=== PATIENT | female | born 1935 | race Caucasian/White ===

== ENCOUNTER 2016-09-22 07:09 | Outpatient (CLI) | payer MEDICARE | END 2016-09-22 07:10 | disposition home or self-care (01) | DX: R30.0 Dysuria (principal) ==

== ENCOUNTER 2016-09-22 15:24 | Outpatient (CLI) | payer MEDICARE | END 2016-09-22 15:25 | disposition home or self-care (01) | DX: M50.321 Other cervical disc degeneration at C4-C5 level (principal); R30.0 Dysuria; M47.892 Other spondylosis, cervical region; M51.36 Other intervertebral disc degeneration, lumbar region; M47.896 Other spondylosis, lumbar region; M25.511 Pain in right shoulder; M19.011 Primary osteoarthritis, right shoulder; M51.34 Other intervertebral disc degeneration, thoracic region; M41.34 Thoracogenic scoliosis, thoracic region; S22.059A Unspecified fracture of T5-T6 vertebra, initial encounter for closed fracture; S22.069A Unspecified fracture of T7-T8 vertebra, initial encounter for closed fracture; S22.079A Unspecified fracture of T9-T10 vertebra, initial encounter for closed fracture ==

== ENCOUNTER 2018-05-30 10:57 | Outpatient (CLI) | payer MEDICARE ==
--- NOTE | 2018-05-30 23:09 | XRAY Report ---
Reason: COMPRESSION FRACTURE, SPINE, DISORDERS OF BLADDER Procedure Date: 05/30/2018 Accession Number: [id number] / [id number] Procedure: XR - Abdomen 3 View X-Ray CPT Code: 43329 FULL RESULT: EXAM: ABDOMINAL SERIES AND PA CHEST. EXAM DATE: 05/30/2018 12:16 PM. CLINICAL HISTORY: Difficulty breathing. Loss of height. Loss of bladder control. COMPARISON: None. TECHNIQUE: 2 views abdomen and 1 view chest. FINDINGS: CHEST: Lungs/Pleura: Hyperinflated lungs. No focal opacities. No effusion or pneumothorax. Mediastinum: Within exam limitations, cardiomediastinal contour is normal. ABDOMEN: Bowel Gas Pattern: Within normal limits. No dilated loops or abnormal fluid levels. No excessive stool. Free Air: None. Other: Thoracic compression fractures noted. Multilevel degenerative lumbar disk disease. Left hip arthroplasty in place. Degenerative narrowing of the right hip. IMPRESSION: 1. Clear hyperinflated lungs. 2. Thoracic compression fractures noted. 3. No bowel obstruction or free air. RADIA
--- NOTE | 2018-05-31 10:42 | XRAY Report ---
Reason: COMPRESSION FRACTURE, SPINE, DISORDERS OF BLADDER Procedure Date: 05/30/2018 Accession Number: [id number] / [id number] Procedure: XR - Pelvis 3 View CPT Code: FULL RESULT: EXAM: PELVIS RADIOGRAPHY EXAM DATE: 05/30/2018 12:13 PM. CLINICAL HISTORY: Compression fracture, spine, disorders of bladder. COMPARISON: None. TECHNIQUE: 3 views. FINDINGS: Bones: No fracture or bone lesion. Joints: Status post right total hip arthroplasty. Advanced loss of joint space with associated degenerative changes is noted in the left femoral acetabular joints. The pubis symphysis, and sacroiliac joints are preserved. No subluxation. Soft Tissues: Normal. No soft tissue swelling. IMPRESSION: Status post right total hip arthroplasty with advanced degenerative changes in the left hip joints. CRITICAL RESULT: The findings were discussed with Kalie Guzman on 05/31/2018 at 10 AM. The history was clarified with the result that the symptoms are long-standing with gradual onset, and that there is no clinical concern for cauda equina syndrome. The possibility of imaging of the spine was discussed. [facility]
== END 2018-05-30 10:58 | disposition home or self-care (01) ==
LOC: DI 10:57
PROVIDERS: ATTEND Nurse Practitioner Family
DX: N32.89 Other specified disorders of bladder (principal); M48.54XA Collapsed vertebra, not elsewhere classified, thoracic region, initial encounter for fracture; M16.12 Unilateral primary osteoarthritis, left hip; Z96.641 Presence of right artificial hip joint; M51.36 Other intervertebral disc degeneration, lumbar region
CPT/HCPCS: 72190; 74021

== ENCOUNTER 2018-07-30 23:47 | Emergency (ER) | payer MEDICARE ==
--- NOTE | 2018-07-31 00:30 | ED Physician Documentation ---
History of Present Illness - Stated complaint Stated Complaint: FEMALE - Chief complaint Chief Complaint: Abd Pain - History obtained from History obtained from: Patient, Family - History of Present Illness Timing: Yesterday Pain level max: 6 Pain level now: 6 - Additonal information Additional information: 83-year-old female who had a bladder scraping done today for bladder cancer. Was able to urinate earlier today, but has been unable to urinate for the past several hours. Increasing lower abdominal pain. No fevers. Nothing makes it better or worse. Review of Systems Constitutional: denies: Fever GI: denies: Vomiting PD PAST MEDICAL HISTORY - Past Medical History Past Medical History: Yes - Past Surgical History Past Surgical History: Yes - Allergies Allergies/Adverse Reactions: Allergies Allergy/AdvReac Type Severity Reaction Status Date / Time No Known Drug Allergies Allergy Verified 07/31/18 00:07 - Living Situation Living Situation: reports: With family Living Arrangement: reports: At home - Social History Does the pt smoke?: No Does the pt have substance abuse?: No - Family History Family history: reports: Non contributory PD ED PE NORMAL - Vitals Vital signs reviewed: Yes - General General: Alert and oriented X 3, No acute distress - HEENT HEENT: Moist mucous membranes - Neck Neck: Supple, no meningeal sign - Cardiac Cardiac: RRR - Respiratory Respiratory: No respiratory distress, Clear bilaterally - Abdomen Abdomen: Soft, Other (Tender to palpation suprapubic without peritoneal signs) - Back Back: No CVA TTP - Derm Derm: Warm and dry - Neuro Neuro: Alert and oriented X 3 Results - Vitals Vitals: Vital Signs - 24 hr 07/31/18 07/31/18 00:04 01:24 Temperature 36.6 C 36.5 C Heart Rate 71 68 Respiratory 16 15 Rate Blood Pressure 124/49 L 122/68 O2 Saturation 98 98 Oxygen O2 Source Room air PD MEDICAL DECISION MAKING - ED course Complexity details: re-evaluated patient, considered differential, d/w patient, d/w family ED course: Patient with acute urinary retention. Mora catheter placed. Urine drained. Tolerated well. There is gross hematuria. We will have her follow-up with urology for further care. Mora catheter left in place. Patient and family counseled regarding signs and symptoms for which I believe and urgent re- evaluation would be necessary. Patient with good understanding of and agreement to plan and is comfortable going home at this time This document was made in part using voice recognition software. While efforts are made to proofread this document, sound alike and grammatical errors may occur. Departure - Departure Disposition: 01 Home, Self Care Clinical Impression: Acute urinary retention Condition: Good Instructions: ED Catheter Care Mora Follow-Up: Kalie Guzman ARNP [Primary Care Provider] - Within 1 week Comments: Urologist next week for removal of the Mora catheter. Return if you worsen. Discharge Date/Time: 07/31/18 01:27
[2018-07-31 01:25] VITALS: BP 122/68
== END 2018-07-31 01:27 | disposition home or self-care (01) ==
LOC: ED 23:47
DX: R33.9 Retention of urine, unspecified (principal); R31.0 Gross hematuria; C67.9 Malignant neoplasm of bladder, unspecified; Z98.890 Other specified postprocedural states
CPT/HCPCS: 51702; 99283

== ENCOUNTER 2018-09-19 12:34 | Outpatient (CLI) | payer MEDICARE ==
[2018-09-19 17:50] LABS: CALCIUM 9.1 mg/dL (8.5-10.3); CREATININE 0.8 mg/dL (0.4-1.0)
== END 2018-09-19 12:35 | disposition home or self-care (01) ==
LOC: LAB.F 12:34
PROVIDERS: ATTEND Registered Nurse
DX: I87.8 Other specified disorders of veins (principal)
CPT/HCPCS: 36415; 80048

== ENCOUNTER 2020-07-30 07:00 | Outpatient (CLI) | payer MEDICARE ==
--- NOTE | 2020-07-30 15:39 | XRAY Report ---
PROCEDURE: Shoulder 3 View RT INDICATIONS: SHOULDER JOINT PAIN, RIGHT TECHNIQUE: 3 views of the shoulder were acquired. COMPARISON: None. FINDINGS: Bones: No fractures or dislocations. No suspicious bony lesions. Visualized ribs appear intact. Mi ld acromioclavicular joint osteoarthritis. Soft tissues: No suspicious soft tissue calcifications. IMPRESSION: 1. Mild acromioclavicular joint osteoarthritis. 2. No fracture. No acute osseous lesion. If there is continued clinical concern for pathology, then r epeat plain film radiographs (7-10 days) or advanced imaging (CT, MR, bone scan) should be considered for further evaluation. Reviewed by: Janna Fernando MD, PhD on 07/30/2020 3:38 PM PST Approved by: Janna Fernando MD, PhD on 07/30/2020 3:38 PM PST Station ID: [id number]
== END 2020-07-30 23:59 | disposition home or self-care (01) ==
LOC: DI.S 07:00
PROVIDERS: ATTEND Physician Assistant Medical
DX: M19.011 Primary osteoarthritis, right shoulder (principal); M25.511 Pain in right shoulder; Z51.81 Encounter for therapeutic drug level monitoring; Z79.899 Other long term (current) drug therapy
CPT/HCPCS: 36415; 80053; 85025

== ENCOUNTER 2020-07-30 08:00 | Outpatient (CLI) | payer MEDICARE ==
[2020-07-30 19:51] LABS: BASOPHILS % (AUTO) 0.2 %; EOSINOPHILS % (AUTO) 0.1 %; HGB - HEMOGLOBIN 12.5 g/dL (12.0-16.0); LYMPHOCYTES # (AUTO) 0.5 10^3/uL (1.5-3.5); LYMPHOCYTES % (AUTO) 5.8 %; MEAN CORPUSCULAR HEMOGLOBIN 31.3 pg (27.0-31.0); MEAN CORPUSCULAR HGB CONC 33.2 g/dL (32.0-36.0); MONOCYTES # (AUTO) 0.9 10^3/uL (0.0-1.0); MONOCYTES % (AUTO) 10.9 %; NEUTROPHILS % (AUTO) 82.6 %; PLT - PLATELET COUNT 130 10^3/uL (130-450); RED CELL DISTRIBUTION WIDTH 13.2 % (12.0-15.0); WHITE BLOOD COUNT 8.4 x10^3/uL (4.8-10.8)
[2020-07-30 20:04] LABS: ALBUMIN 3.7 g/dL (3.2-5.5); ALBUMIN/GLOBULIN RATIO 1.2 (1.0-2.2); BILIRUBIN,TOTAL 1.3 mg/dL (0.2-1.0); CALCIUM 9.2 mg/dL (8.5-10.3); CREATININE 0.7 mg/dL (0.4-1.0); TOTAL PROTEIN 6.9 g/dL (6.7-8.2)
== END 2020-07-30 23:59 | disposition home or self-care (01) ==
LOC: LAB.S 08:00
PROVIDERS: ATTEND Physician Assistant Medical
DX: M25.511 Pain in right shoulder (principal); Z51.81 Encounter for therapeutic drug level monitoring; Z79.899 Other long term (current) drug therapy
CPT/HCPCS: 36415; 80053; 85025

== ENCOUNTER 2020-08-04 17:20 | Inpatient (IN) | payer MEDICARE ==
[2020-08-04] MEDS ORDERED: LIDOCAINE 1% 2 ML VIAL ONE (17:43)
[2020-08-04 17:47] LABS: BASOPHILS % (AUTO) 0.4 %; EOSINOPHILS % (AUTO) 0.1 %; HGB - HEMOGLOBIN 12.1 g/dL (12.0-16.0); LYMPHOCYTES # (AUTO) 0.6 10^3/uL (1.5-3.5); LYMPHOCYTES % (AUTO) 5.5 %; MEAN CORPUSCULAR HEMOGLOBIN 31.9 pg (27.0-31.0); MEAN CORPUSCULAR HGB CONC 34.7 g/dL (32.0-36.0); MEAN CORPUSCULAR VOLUME 92.1 fL (81.0-99.0); MEAN PLATELET VOLUME 8.5 fL (7.9-10.8); MONOCYTES # (AUTO) 1.2 10^3/uL (0.0-1.0); MONOCYTES % (AUTO) 11.1 %; NEUTROPHILS # (AUTO) 8.5 10^3/uL (1.5-6.6); NEUTROPHILS % (AUTO) 82.3 %; PLT - PLATELET COUNT 278 10^3/uL (130-450); RED BLOOD COUNT 3.79 10^6/uL (4.20-5.40); RED CELL DISTRIBUTION WIDTH 13.2 % (12.0-15.0); WHITE BLOOD COUNT 10.4 x10^3/uL (4.8-10.8)
--- NOTE | 2020-08-04 17:48 | ED Physician Documentation ---
History of Present Illness - Stated complaint Stated Complaint: RIGHT SHOULDER PAIN - Chief complaint Chief Complaint: Ext Problem - History obtained from History obtained from: Patient - History of Present Illness Timing: How many weeks ago (1) - Additonal information Additional information: 85-year-old female was referred to the emergency department by her primary care provider for concerns of a septic right shoulder. Reportedly she began working in the garden over a week ago and developed acute pain in the right shoulder. She was seen at a local walk-in clinic where an NSAID medication was prescribed. Unfortunately pain did not improve and she has had progressive swelling of the shoulder with erythema at the AC joint and anterior shoulder. She denies any fevers but does report that she has some night sweats. No nausea vomiting diarrhea. No chest pain. Patient did present to her primary care provider Dr. Dupont. He was concerned about a septic arthritis therefore he did speak with on-call orthopedic surgeon Dr. Fajardo. After consultation with him the patient was advised to come to the emergency department. At the time the patient arrives here Dr. Fajardo is here as well. Imaging sed rate and CRP are all pending. Review of Systems Constitutional: reports: Reviewed and negative Eyes: reports: Reviewed and negative Ears: reports: Reviewed and negative Nose: reports: Reviewed and negative Cardiac: reports: Reviewed and negative Respiratory: reports: Reviewed and negative GI: reports: Reviewed and negative : reports: Reviewed and negative Skin: reports: Reviewed and negative Musculoskeletal: reports: Joint pain (right shoulder) Psychiatric: reports: Reviewed and negative Endocrine: reports: Reviewed and negative PD PAST MEDICAL HISTORY - Past Medical History Endocrine/Autoimmune: HyPOthyroidism : Other - Past Surgical History Past Surgical History: Yes - Present Medications Home Medications: Ambulatory Orders Medication Instructions Recorded Confirmed HYDROcod/ACET 5/325 Prepack 4 1 bottle PO ONCE #1 bottle 08/04/20 [NORCO 5/325 Prepack 4] - Allergies Allergies/Adverse Reactions: Allergies Allergy/AdvReac Type Severity Reaction Status Date / Time No Known Drug Allergies Allergy Verified 07/31/18 00:07 - Social History Does the pt smoke?: No Smoking Status: Never smoker Does the pt drink ETOH?: No Does the pt have substance abuse?: No - Immunizations Immunizations are current?: Yes PD ED PE EXPANDED - General General: Alert, Well developed/nourished - Cardiac Cardiac: Regular Rhythm, Radial strong equal, Pedal strong equal, Cap refill < 2 sec - Extremities Extremities: Right shoulder (Focal tenderness and erythema at the right AC joint with limited range of motion secondary to pain. Palpable fluid and effusion anterior joint with erythema.) Results - Vitals Vitals: Vital Signs - 24 hr 08/04/20 08/04/20 17:26 17:39 Temperature 37 C 37.2 C Heart Rate 56 L 105 H Respiratory 16 20 Rate Blood Pressure 170/86 H 179/107 H O2 Saturation 96 98 Oxygen O2 Source Room air - Labs Labs: Laboratory Tests 08/04/20 08/04/20 08/04/20 17:41 17:41 17:41 WBC 10.4 RBC 3.79 L Hgb 12.1 Hct 34.9 L MCV 92.1 MCH 31.9 H MCHC 34.7 RDW 13.2 Plt Count 278 MPV 8.5 Neut # (Auto) 8.5 H Lymph # (Auto) 0.6 L [place] # (Auto) 1.2 H Eos # (Auto) 0.0 Baso # (Auto) 0.0 Absolute Nucleated RBC 0.00 Nucleated RBC % 0.0 ESR 78 H Sodium 136 Potassium 3.8 Chloride 95 L Carbon Dioxide 26 Anion Gap 15.0 H BUN 31 H Creatinine 1.1 H Estimated GFR (MDRD) 47 L Glucose 128 H Calcium 9.1 Total Bilirubin 0.8 AST 28 ALT 23 Alkaline Phosphatase 114 C-Reactive Protein 32.5 H Total Protein 7.3 Albumin 3.1 L Globulin 4.2 Albumin/Globulin Ratio 0.7 L Lipase 20 L - Rads (name of study) Right AC joint Radiology: Final report received (mild degenerative narrowing of the AC joint is noted) PD MEDICAL DECISION MAKING - ED course Complexity details: reviewed results, considered differential, d/w patient, d/w analysis consultant (Scotty) ED course: 85-year-old female presents to the emergency department with right anterior shoulder swelling and erythema. The history is concerning for a septic arthritis. Of note is a leukocytosis and elevated CRP and sedimentation rate. Dr. Sixto Fajardo with orthopedics did do a bedside aspiration which was quite milky. He will be taking the patient to same-day surgery this evening for washout of this infected joint. He is also going to be starting her on long- term antibiotics and helping coordinate with the [facility] placement of a PICC line for longer-term evaluation and treatment. I have made hydrocodone pre-pack available to the patient Departure - Departure Disposition: ED Transfer to [facility] Clinical Impression: Septic joint of right shoulder region Qualifiers: Septic arthritis organism: due to unspecified organism Qualified Code(s): M00.9 - Pyogenic arthritis, unspecified
--- NOTE | 2020-08-04 18:15 | XRAY Report ---
PROCEDURE: AC Joints INDICATIONS: pain swelling TECHNIQUE: 2 views each of both acromioclavicular joints were acquired. COMPARISON: None FINDINGS: Bones: No fractures or dislocations. Mild degenerative narrowing at the acromioclavicular joint spac e is noted. No suspicious bony lesions. Superior ribs appear normal. Soft tissues: No suspicious soft tissue calcifications. IMPRESSION: Mild degenerative acromioclavicular narrowing is noted. Reviewed by: Sarina Han MD on 08/04/2020 5:14 PM [facility] Approved by: Sarina Han MD on 08/04/2020 5:14 PM [facility] Station ID: [id number]
[2020-08-04 18:18] LABS: ALBUMIN 3.1 g/dL (3.2-5.5); ALBUMIN/GLOBULIN RATIO 0.7 (1.0-2.2); BILIRUBIN,TOTAL 0.8 mg/dL (0.2-1.0); CALCIUM 9.1 mg/dL (8.5-10.3); CREATININE 1.1 mg/dL (0.4-1.0); CRP - C-REACTIVE PROTEIN 32.5 mg/dL (0-1.0); TOTAL PROTEIN 7.3 g/dL (6.7-8.2)
--- NOTE | 2020-08-04 18:20 | CONSULTATION NOTE ---
Referring Provider Name of Referring Provider:: Puja Consult Date: 08/04/20 Chief Complaint - Chief Complaint Chief Complaint: Right shoulder pain History of Present Illness - Admitted From Admitted From:: ER - History Obtained From History obtained from: patient - History of Present Illness HPI Comment/Other: I saw this [id number] 85-year-old in consultation in the emergency room regards to her right shoulder pain. She tells me approximately 1 week ago she began to have increased pain in the shoulder. She had been doing some gardening however does not recall specific trauma. Over the subsequent several days pain became progressively worse. She noted swelling over the superior aspect of the shoulder. She noted erythema to the skin. Pain worsened with lying on her side and use of the arm. She has had pain at nighttime. She denies any fevers or chills however has had night sweats. No recent infectious contacts or travel. She denies any other sources of infection.She was seen by her primary care provider today who called me and I recommended that she be brought to the emergency room. History - Past Medical History Endocrine/Autoimmune: reports: HyPOthyroidism : reports: Other Other Past Medical History: Past medical, surgical and family history were revie wed. No pertinent findings. Meds/Allgy - Allergies Allergies/Adverse Reactions: Allergies Allergy/AdvReac Type Severity Reaction Status Date / Time No Known Drug Allergies Allergy Verified 07/31/18 00:07 Review of Systems - Constitutional Constitutional: reports: Night sweats - Integumentary Integumentary: reports: Other (Shoulder pain, swelling warmth and redness) Exam - Vital Signs Reviewed Vital Signs: Yes Vital Signs: Vital Signs x48h Temp Pulse Resp BP Pulse Ox 08/04/20 17:39 37.2 C 105 H 20 179/107 H 98 08/04/20 17:26 37 C 56 L 16 170/86 H 96 - Physical Exam General Appearance: positive: No acute distress, Alert Eyes Bilateral: positive: Normal inspection ENT: positive: ENT inspection nml Neck: positive: Nml inspection Respiratory: positive: Chest non-tender, No respiratory distress Cardiovascular: positive: Regular rate & rhythm Peripheral Pulses: positive: 2+ Abdomen: positive: Non-tender Skin: positive: Other (Erythema over the anterior superior aspect of the shoulder, overlying the acromioclavicular joint with some erythema over the anterior shoulder) Extremities: positive: Other (Maximal tenderness and swelling at the acromioclavicular joint. Pain with cross body adduction. Passive glenohumeral motion is recently well-tolerated however slightly uncomfortable for her. There is fullness over the anterior glenohumeral joint.) Neurologic/Psychiatric: positive: Oriented x3, Motor nml, Sensation nml Conclusion/Plan - Diagnosis Diagnosis: Septic arthritis Right acromioclavicular joint - Plan Plan: I have recommended an arthrocentesis of both the acromioclavicular joint and the glenohumeral joint. After explained the procedure and confirming the sites, skin was prepped with alcohol in sterile fashion. Skin and subcutaneous tissues were infiltrated with 1% plain lidocaine. I first addressed the acromioclavicular joint. Using standard sterile technique, 22-gauge needle was then used to aspirate fluid from the right acromioclavicular joint under fluoroscopic guidance. 3 cc of purulent looking material were immediately encountered. Sterile dressing was applied. Fluid was sent for Gram stain, cultures and cell count. Patient tolerated procedure well and there were no complications. I then reprepped the posterior shoulder. Using a posterior portal approach with standard sterile technique, I then attempted to aspirate fluid from the glenohumeral joint. I was unable to obtain any fluid. Band-Aid was then applied. Patient tolerated procedure well. Given the obvious obvious purulence of the right acromioclavicular joint, I have recommended irrigation and debridement.Given the extensive arthritic changes at acromioclavicular joint of also recommended distal clavicle excision. The pros and cons of surgery have been discussed, as have the benefits and risks associated with the procedure. All questions have been answered. Patient wishes to proceed. Consent has been obtained.She will undergo right acromioclavicular joint irrigation and debridement as an outpatient, probable discharge home later tonight to return tomorrow morning for further antibiotic therapy and PICC line placement. - Lab Results Fish Bones: 08/04/20 17:41 - Diagnostic Imaging Results Diagnostic Imaging Results: positive: Read independently (I personally reviewed the radiographs of the shoulder performed few days ago. There is obvious soft tissue swelling and fluid at the right acromioclavicular joint. No other bony abnormalities are noted. I did have an AC joint view performed today which confirms soft tissue swelling and fluid in t)
[2020-08-04] MEDS ORDERED: ROPIVACAINE 0.5% PF 20 ML AMPULE SUBQ ONE ×2 (18:29)
[2020-08-04] MEDS ORDERED: HYDROcod/ACET 5/325 Prepack 4 PO ONE (18:41)
[2020-08-04 19:17] LABS: BF CLARITY TURBID; BF COLOR STRAW; BF SOURCE SYNOVIAL; CC,BF RBC 12000 /mm^3
[2020-08-04] MEDS ORDERED: ONDANSETRON 4 MG/2 ML VIAL IVP ONE (19:21)
[2020-08-04] MEDS ORDERED: LIDOCAINE-MPF 2% 5 ML VIAL IM ONE (19:21)
[2020-08-04] MEDS ORDERED: PROPOFOL 200 MG/20 ML VIAL IVP ONE (19:21)
[2020-08-04] MEDS ORDERED: ACETAMINOPHEN 1,000 MG/100 ML 100 ML IV ONE (19:21)
[2020-08-04] MEDS ORDERED: fentaNYL 100 MCG/2 ML VIAL IVP ONE (19:21)
[2020-08-04] MEDS ORDERED: MIDAZOLAM 2 MG/2 ML VIAL IVP ONE (19:21)
[2020-08-04] MEDS ORDERED: HYDROmorphone 1 MG/ML CARPUJECT IVP ONE (19:21)
[2020-08-04] MEDS ORDERED: ROPIVACAINE 0.5% PF 20 ML AMPULE ONE (19:34)
[2020-08-04] MEDS ORDERED: VANCOMYCIN 1 GM VIAL ONE (19:35)
[2020-08-04] MEDS ORDERED: VANCOMYCIN INJ 1 GM in SODIUM CHLORIDE 0.9% 250 ML IV ONE (19:40)
[2020-08-04] MEDS ORDERED: ceFAZolin 2 GM in SODIUM CHLORIDE 0.9% 100ML 100 ML IV ONE ×2 (19:40→20:23)
--- NOTE | 2020-08-04 20:07 | ANESTHESIA ---
Pre-Anesthesia VS, & Labs - Diagnosis Diagnosis Septic arthritis Right acromioclavicular joint - Procedure I&D right acromiaclavicular joint infection Vital Signs: Temp Pulse Resp BP Pulse Ox 37.2 C 105 H 20 179/107 H 98 08/04/20 17:39 08/04/20 17:39 08/04/20 17:39 08/04/20 17:39 08/04/20 17:39 Height: 5 ft 3 in Weight (kg): 54.431 kg Body Mass Index: 21.2 BMI Classification: Healthy weight - NPO >8 hours Last Food Intake: 10am - Is Patient ?: No - Lab Results Current Lab Results: Laboratory Tests 08/04/20 17:41: Sodium 136, Potassium 3.8, Chloride 95 L, Carbon Dioxide 26, Anion Gap 15.0 H, BUN 31 H, Creatinine 1.1 H, Estimated GFR (MDRD) 47 L, Glucose 128 H, Calcium 9.1, Total Bilirubin 0.8, AST 28, ALT 23, Alkaline Phosphatase 114, C-Reactive Protein 32.5 H, Total Protein 7.3, Albumin 3.1 L, Globulin 4.2, Albumin/Globulin Ratio 0.7 L, Lipase 20 L 08/04/20 17:41: ESR 78 H 08/04/20 17:41: WBC 10.4, RBC 3.79 L, Hgb 12.1, Hct 34.9 L, MCV 92.1, MCH 31.9 H , MCHC 34.7, RDW 13.2, Plt Count 278, MPV 8.5, Neut # (Auto) 8.5 H, Lymph # (Auto) 0.6 L, [place] # (Auto) 1.2 H, Eos # (Auto) 0.0, Baso # (Auto) 0.0, Absolute Nucleated RBC 0.00, Nucleated RBC % 0.0 Fish Bones: 08/04/20 17:41 08/04/20 17:41 Home Medications and Allergies naturopathic thyroid replacement, "water pill" Allergies/Adverse Reactions: Allergies Allergy/AdvReac Type Severity Reaction Status Date / Time No Known Drug Allergies Allergy Verified 07/31/18 00:07 Anes History & Medical History - Anesthetic History Anesthesia Complications: reports: No previous complications - Medical History Cardiovascular: reports: None Pulmonary: reports: None Gastrointestinal: reports: GERD (occassional r/t postiton) Urinary: reports: Other (HIstory of bladder cancer. s/p chemo) Neuro: reports: None Musculoskeletal: reports: Osteoporosis (thoracic vertebral compression fractures) Endocrine/Autoimmune: reports: HyPOthyroidism Blood Disorders: reports: None Smoking Status: Never smoker Psychosocial: reports: No issues indicated History of Cancer?: Yes Other Past Medical History: Past medical, surgical and family history were reviewed. No pertinent findings. - Surgical History Urologic: Bladder surgery (TURBT) Gynecologic: Hysterectomy Orthopedic: Hip replacement (left), Other (left wrist fracture) Exam General: Alert, Oriented x3, Cooperative, No acute distress Dental: WNL Mouth Openin Fingerbreadth Neck Mobility: Normal Thyromental Distance: 4-6 cm Mental/Cognitive Status: Alert/Oriented X3, Normal for patient Plan Anesthesia Type: General, Interscalene Block (possible right) Regional Block: Per Surgeon's request for Post Op pain control Consent for Procedure(s) Verified and Reviewed: Yes Code Status: Attempt Resuscitation ASA classification: 2-Mild systemic disease Is this case an emergency?: Yes
[2020-08-04] MEDS ORDERED: NALOXONE 0.4 MG/ML VIAL IVP PRN (20:09)
[2020-08-04] MEDS ORDERED: ePHEDrine 50 MG/ML VIAL IVP PRN (20:09)
[2020-08-04] MEDS ORDERED: ONDANSETRON 4 MG/2 ML VIAL IVP PRN ×2 (20:09→20:23)
[2020-08-04] MEDS ORDERED: fentaNYL 100 MCG/2 ML VIAL IVP PRN (20:09)
[2020-08-04] MEDS ORDERED: MORPHINE 2 MG/ML CARPUJECT IVP PRN (20:09)
[2020-08-04] MEDS ORDERED: METOCLOPRAMIDE 10 MG/2 ML VIAL IVP PRN (20:09)
[2020-08-04] MEDS ORDERED: ATROPINE ABBOJECT 1 MG/10 ML SYRINGE IVP PRN (20:09)
[2020-08-04 20:16] LABS: LYMPHOCYTES %,BODY FLUID 1 %
[2020-08-04] MEDS ORDERED: LACTATED RINGERS 500 ML IV ONE (20:21)
[2020-08-04] MEDS: HYDROmorphone 0.5 MG/0.5 ML SYRINGE IVP PRN ×2 (20:34→20:44)
--- NOTE | 2020-08-04 20:35 | OPERATIVE REPORT ---
Operative Report - General Procedure Date: 08/04/20 Planned Procedure: Irrigation and debridement right acromioclavicular joint Pre-Op Diagnosis: Septic arthritis right acromioclavicular joint Procedure Performed: #1. Irrigation and debridement right glenohumeral joint 2. Irrigation debridement right acromioclavicular joint 3. Right distal clavicle excision Post Op Diagnosis: Septic arthritis right acromioclavicular joint and glenohumeral joint - Procedure Note Primary Surgeon: ita Anesthesia Technique: General LMA Estimated Blood Loss (mL): 30 Drain/Tube Type: Mahamed drain - Other Other Information/Narrative: Preamble: This patient was assessed in the emergency room where arthrocentesis of the right acromioclavicular joint produced roxy pus. Laboratory findings in keeping with septic arthritis. After discussion of operative and nonoperative management, patient agreed to proceed with irrigation debridement of the right acromioclavicular joint.After discussion of risks and benefits, informed consent was obtained and surgical site was marked. Operative note: Patient was brought to the operating room and a general anesthetic was ministered. Placed in supine position with all bony prominences well-padded. Arm was then prepped and draped in usual sterile fashion. Surgical timeout was completed, confirming procedure, patient and side. Patient received intravenous antibiotics preoperatively.Using an 18-gauge needle, arthrocentesis of the glenohumeral joint was then performed. Encountered roxy pus. The decision was then made to proceed with I&D of both the AC joint and glenohumeral joint.A longitudinal incision was then made extending from the acromioclavicular joint over the anterior shoulder. Large amount of pus was encountered. Deltoid was divided in line with its fibers to its attachment to the acromion. Soft tissues were elevated from the acromioclavicular joint using electrocautery. After defined borders of the distal clavicle, approximately 1 cm of distal clavicle was then excised using a saw. It was noted there was a massive retracted rotator cuff tear with the anterior half of the humeral head being exposed. The acromioclavicular joint and glenohumeral joints were then thoroughly irrigated with 6 L normal saline on gravity.Joint capsule of the acromioclavicular joint then closed with #1 Vicryl. A drain was then passed through a stab wound into the anterior shoulder with the tail of the drain in the glenohumeral joint. Fascia of deltoid was closed with #1 Vicryl. Skin was closed with gale. Sterile dressings then applied. Arm was put into a sling. Patient was then transferred to regular hospital bed and taken to the recovery room in stable condition with no intraoperative complications. Postoperative plan: As there are no beds available, patient will be discharged home tonight to return for seen in the morning for Insertion of a PICC line and outpatient IV antibiotic therapy. Discontinue drain in 48 hours. Dressing change postop day 2. Discontinue gale 10 to 14 days. Shoulder range of motion and function as tolerated.Consultation with infectious diseases once cultures are back with sensitivities. Plan for outpatient vancomycin Until sensitivities are back.Outpatient IV antibiotics for 4 to 6 weeks.
[2020-08-04] MEDS ORDERED: HYDROmorphone 0.5 MG/0.5 ML SYRINGE ONE (20:40)
[2020-08-04] MEDS ORDERED: LACTATED RINGERS 1,000 ML IV SCH (21:00)
[2020-08-04] MEDS: oxyCODONE 5 MG TABLET PO PRN (21:21)
[2020-08-04] MEDS ORDERED: oxyCODONE 5 MG TABLET PO PRN (22:10)
[2020-08-04] MEDS: ACETAMINOPHEN 325 MG TABLET PO SCH (23:20)
--- NOTE | 2020-08-04 23:43 | ANESTHESIA POST OP EVALUATION ---
Anesthesia Post Eval - Post Anesthesia Eval Vitals: Last Vital Signs Temp 36.6 C 08/04/20 22:04 Pulse 87 08/04/20 22:04 Resp 16 08/04/20 22:04 BP 120/66 08/04/20 22:04 Pulse Ox 98 08/04/20 22:04 CV Function Including HR & BP: positive: Stable Pain Control: positive: Satisfactory Nausea & Vomiting: positive: Negative Mental Status: positive: Baseline Respiratory Status: Airway Patent Hydration Status: Satisfactory Anesthesia Complications: positive: None
[2020-08-05] MEDS: LACTATED RINGERS 1,000 ML IV SCH ×2 (00:36→12:58)
[2020-08-05] MEDS ORDERED: ceFAZolin 2 GM in SODIUM CHLORIDE 0.9% 100ML 100 ML IV SCH (04:00)
[2020-08-05] MEDS: ACETAMINOPHEN 325 MG TABLET PO SCH ×3 (05:20→17:07)
[2020-08-05] MEDS ORDERED: VANCOMYCIN INJ 1 GM in SODIUM CHLORIDE 0.9% 250 ML IV SCH (09:00)
--- NOTE | 2020-08-05 09:18 | PROVIDER PROGRESS NOTE ---
Subjective - Prog Note Date Prog Note Date: 08/05/20 - Subjective Pt reports feeling: Improved (Minimal pain. Shoulder feels much better today. No numbness or tingling to the hand. Apparently the drain was discontinued earlier today) Objective - Vital Signs/Intake & Output Reviewed Vital Signs: Yes Vital Signs: Vital Signs x48h Temp Pulse Resp BP Pulse Ox 08/05/20 08:36 36.6 C 83 16 142/68 H 97 08/05/20 06:00 36.6 C 74 16 120/62 98 Intake & Output: Intake & Output 08/02/20 08/03/20 08/04/20 08/05/20 23:59 23:59 23:59 23:59 Intake Total 590 Output Total 20 400 Balance -20 190 - Objective General Appearance: positive: No acute distress, Alert Eyes Bilateral: positive: Normal inspection Respiratory: positive: No respiratory distress Cardiovascular: positive: Regular rate & rhythm Skin: positive: Other (Dressing intact) Extremities: positive: Other (Passive shoulder range of motion well-tolerated.) Neurologic/Psychiatric: positive: Oriented x3, Motor nml, Sensation nml - Lab Results Fish Bones: 08/04/20 17:41 08/04/20 17:41 Other Labs: Lab Results x24hrs 08/04/20 08/04/20 08/04/20 Range/Units 18:00 18:00 17:41 WBC (4.8-10.8) x10^3/uL RBC (4.20-5.40) 10^6/uL Hgb (12.0-16.0) g/dL Hct (37.0-47.0) % MCV (81.0-99.0) fL MCH (27.0-31.0) pg MCHC (32.0-36.0) g/dL RDW (12.0-15.0) % Plt Count (130-450) 10^3/uL MPV (7.9-10.8) fL Neut # (Auto) (1.5-6.6) 10^3/uL Lymph # (Auto) (1.5-3.5) 10^3/uL [place] # (Auto) (0.0-1.0) 10^3/uL Eos # (Auto) (0.0-0.7) 10^3/uL Baso # (Auto) (0.0-0.1) 10^3/uL Absolute Nucleated RBC x10^3/uL Nucleated RBC % /100WBC ESR (0-30) mm/Hr Sodium 136 (135-145) mmol/L Potassium 3.8 (3.5-5.0) mmol/L Chloride 95 L (101-111) mmol/L Carbon Dioxide 26 (21-32) mmol/L Anion Gap 15.0 H (6-13) BUN 31 H (6-20) mg/dL Creatinine 1.1 H (0.4-1.0) mg/dL Estimated GFR (MDRD) 47 L (>89) Glucose 128 H (70-100) mg/dL Calcium 9.1 (8.5-10.3) mg/dL Total Bilirubin 0.8 (0.2-1.0) mg/dL AST 28 (10-42) IU/L ALT 23 (10-60) IU/L Alkaline Phosphatase 114 (42-121) IU/L C-Reactive Protein 32.5 H (0-1.0) mg/dL Total Protein 7.3 (6.7-8.2) g/dL Albumin 3.1 L (3.2-5.5) g/dL Globulin 4.2 (2.1-4.2) g/dL Albumin/Globulin Ratio 0.7 L (1.0-2.2) Lipase 20 L (22-51) U/L Fluid Source SYNOVIAL Fluid Color STRAW Fluid Clarity TURBID Fluid WBC 711868 /mm^3 Fluid RBC 90512 /mm^3 Fluid Neutrophils % 99 % Fluid Lymphocytes % 1 % Fld Mesothelial Cell % Not Reportable Fluid Crystals NONE SEEN 08/04/20 08/04/20 Range/Units 17:41 17:41 WBC 10.4 (4.8-10.8) x10^3/uL RBC 3.79 L (4.20-5.40) 10^6/uL Hgb 12.1 (12.0-16.0) g/dL Hct 34.9 L (37.0-47.0) % MCV 92.1 (81.0-99.0) fL MCH 31.9 H (27.0-31.0) pg MCHC 34.7 (32.0-36.0) g/dL RDW 13.2 (12.0-15.0) % Plt Count 278 (130-450) 10^3/uL MPV 8.5 (7.9-10.8) fL Neut # (Auto) 8.5 H (1.5-6.6) 10^3/uL Lymph # (Auto) 0.6 L (1.5-3.5) 10^3/uL [place] # (Auto) 1.2 H (0.0-1.0) 10^3/uL Eos # (Auto) 0.0 (0.0-0.7) 10^3/uL Baso # (Auto) 0.0 (0.0-0.1) 10^3/uL Absolute Nucleated RBC 0.00 x10^3/uL Nucleated RBC % 0.0 /100WBC ESR 78 H (0-30) mm/Hr Sodium (135-145) mmol/L Potassium (3.5-5.0) mmol/L Chloride (101-111) mmol/L Carbon Dioxide (21-32) mmol/L Anion Gap (6-13) BUN (6-20) mg/dL Creatinine (0.4-1.0) mg/dL Estimated GFR (MDRD) (>89) Glucose (70-100) mg/dL Calcium (8.5-10.3) mg/dL Total Bilirubin (0.2-1.0) mg/dL AST (10-42) IU/L ALT (10-60) IU/L Alkaline Phosphatase (42-121) IU/L C-Reactive Protein (0-1.0) mg/dL Total Protein (6.7-8.2) g/dL Albumin (3.2-5.5) g/dL Globulin (2.1-4.2) g/dL Albumin/Globulin Ratio (1.0-2.2) Lipase (22-51) U/L Fluid Source Fluid Color Fluid Clarity Fluid WBC /mm^3 Fluid RBC /mm^3 Fluid Neutrophils % % Fluid Lymphocytes % % Fld Mesothelial Cell % Fluid Crystals - Other Results/Comments Other Results/Comments: Gram stain shows gram-positive cocci. Assessment/Plan - Problem List (1) Septic arthritis of shoulder, right Impression: Patient is doing very well POD 1 irrigation debridement right Glenohumeral and acromioclavicular joints.Cultures and sensitivities still pending. Patient is on vancomycin and cefazolin regularly. For PICC line placement today. Will change to antibiotic monotherapy once sensitivities are back. Patient will r equire 6 weeks IV antibiotics. Sling for comfort, activity as tolerated. Dressing change postop day 2. Clinic 10 to 14 days for removal of gale.
[2020-08-05 09:24] LABS: CALCIUM 8.5 mg/dL (8.5-10.3); CREATININE 0.9 mg/dL (0.4-1.0)
[2020-08-05 10:08] LABS: BASOPHILS % (AUTO) 0.5 %; EOSINOPHILS # (AUTO) 0.1 10^3/uL (0.0-0.7); EOSINOPHILS % (AUTO) 1.3 %; HGB - HEMOGLOBIN 10.9 g/dL (12.0-16.0); LYMPHOCYTES # (AUTO) 0.6 10^3/uL (1.5-3.5); LYMPHOCYTES % (AUTO) 6.9 %; MEAN CORPUSCULAR HEMOGLOBIN 30.2 pg (27.0-31.0); MEAN CORPUSCULAR HGB CONC 32.5 g/dL (32.0-36.0); MEAN CORPUSCULAR VOLUME 92.8 fL (81.0-99.0); MEAN PLATELET VOLUME 8.7 fL (7.9-10.8); MONOCYTES # (AUTO) 0.9 10^3/uL (0.0-1.0); MONOCYTES % (AUTO) 10.8 %; NEUTROPHILS # (AUTO) 6.4 10^3/uL (1.5-6.6); PLT - PLATELET COUNT 242 10^3/uL (130-450); RED BLOOD COUNT 3.61 10^6/uL (4.20-5.40); RED CELL DISTRIBUTION WIDTH 13.4 % (12.0-15.0)
[2020-08-05] MEDS: KETOROLAC 15 MG/ML VIAL IVP PRN ×2 (13:00→21:30)
--- NOTE | 2020-08-05 14:19 | PHARMACY PROGRESS NOTE ---
- Therapy Status Vancomycin regimen day #: 1 Therapy status: Awaiting steady state Basis for treatment: Empirical Treatment indication: SEPTIC JOINT Trough goal: 15-20 Concurrent antibiotics: ROCEPHIN 2G Q24H - EDWIGE Risk Risk level for Acute Kidney Injury: Moderate Acute Kidney Injury risk factors: Baseline CrCl <50, Duration >7 days, Goal trough >15 - Monitoring and Recommendation Clinical response to treatment: I&O Previous 24 hours 08/03/20 08/04/20 08/05/20 23:59 23:59 23:59 Intake Total 2690 Output Total 20 400 Balance -20 2290 Lab Results 08/05/20 08/04/20 08/04/20 08:59 17:41 17:41 ESR 78 H BUN 24 H 31 H Creatinine 0.9 1.1 H Estimated GFR (MDRD) 59 L 47 L Cultures 08/04/20 18:00 Other - Right Arm Body Fluid Culture - Preliminary Staphylococcus Aureus 08/04/20 19:45 Shoulder - Right Wound Culture - Preliminary Staphylococcus Aureus Monitoring plan: Daily serum creatinine, Draw trough early (VANCOMYCIN INITIATED FOR SEPTIC JOINT- [facility] - SENITIVITIES PENDING SCR: 0.9 MG/DL; CRCL: ~37 ML/MIN T1/2 = 19H 2GM "LOAD" 08/05 MAINTENANCE DOSE: 1GM Q24H TROUGH SCHEDULED FOR 08/07 @ 1200, (BEFORE 3RD DOSE))
--- NOTE | 2020-08-05 14:31 | PHARMACY PROGRESS NOTE ---
- Best Possible Medication History Admit Date and Time: 08/05/20 0833 Processed by: Pharmacy Medication History completed: Yes Patient Interview: Completed (PATIENT INTERVIEWED BY PHARMACY. PATIENT CONFIRMS HOME MEDICATION) As the person ultimately responsible for medication therapy, providers are able to order a medication from an existing home medication list in [facility] via the "Reconcile Routine" prior to Confirmation of that medication by support coordinator. Such practice is discouraged except when the physician, in their clinical judgment, deems that a medical need exists for a medication without regard to previous use.
[2020-08-05] MEDS: cefTRIAXone 2 GM in SODIUM CHLORIDE 0.9% MINIBAG 100 ML IV SCH (14:52)
--- NOTE | 2020-08-05 16:17 | XRAY Report ---
PROCEDURE: Chest for Line Placement INDICATIONS: new PICC @L basilic v. TECHNIQUE: One view of the chest was acquired. COMPARISON: 12/24/2013. FINDINGS: Surgical changes and devices: PICC line projects at the atrial caval junction via left-sided approach . Skin gale project over the right shoulder. Lungs and pleura: No pleural effusions or pneumothorax. Lungs are clear. Mediastinum: Mediastinal contours appear normal. Is enlarged Bones and chest wall: No suspicious [place] lesions. Overlying soft tissues appear unremarkable. IMPRESSION: No acute cardiopulmonary disease process. PICC line projects at the atriocaval junction. Reviewed by: Janna Fernando MD, PhD on 08/05/2020 4:16 PM PST Approved by: Janna Fernando MD, PhD on 08/05/2020 4:16 PM PST Station ID: [id number]
--- NOTE | 2020-08-05 16:29 | ANESTHESIA PROCEDURE NOTE ---
Anesth Central Line Template - Central Line Central Line Preparation: Consent Obtained, Time out completed, Ultrasound used, Sterile prep and drape Central line location: Left Basilic Central line type: Single lumen Central line aftercare: Secured (statlock), Placement confirmed (by cxr), No complications, Bundle checklist complete, Pt tolerated well
[2020-08-05] MEDS ORDERED: VANCOMYCIN INJ 0.75 GM in SODIUM CHLORIDE 0.9% 250 ML IV SCH (19:00)
--- NOTE | 2020-08-05 19:08 | PROVIDER PROGRESS NOTE ---
Assessment/Plan - Problem List (1) Septic arthritis of shoulder, right Assessment/Plan: pt reported right shoulder pain with progressing worsening. orthopedics surgeon did aspiration and irrigation debridement right Glenohumeral and acromioclavicular joints. Cultures show staph aureus but sensitive study is pending. aspiration fluid staining reveal septic arthritis without crystal. Continue Rocephin and vancomycin intravenous, waiting for sensitivity study if it is MRSA, then finally determine which antibiotics, then will order PICC for pt. pt is likely need two week IV antibiotic then two week PO antibiotics (2) HTN (hypertension) Assessment/Plan: stable, will resume home BP meds (3) Dehydration Assessment/Plan: pt slight elevated BUN and creatinine, IVF and lab monitor - Current Meds Current Meds: Current Medications Generic Name Dose Route Start Last Admin Trade Name Freq PRN Reason Stop Dose Admin Acetaminophen 975 mg 08/04/20 23:00 08/05/20 17:07 Tylenol PO 08/07/20 22:59 975 mg Q6H PATT Administration Lactated Ringer's 1,000 mls @ 100 mls/hr 08/04/20 21:00 08/05/20 12:58 Lr IV 100 mls/hr .Q10H PATT Administration Ceftriaxone Sodium 2 gm/ 100 mls @ 200 mls/hr 08/05/20 14:02 08/05/20 15:22 Sodium Chloride IV Infused DAILY PATT Infusion Ketorolac Tromethamine 15 mg 08/04/20 22:11 08/05/20 13:00 Toradol Inj (15mg) IVP 08/09/20 22:10 15 mg Q6HR PRN Administration PAIN Oxycodone HCl 5 mg 08/04/20 20:23 08/04/20 21:21 Roxicodone PO 5 mg Q4HR PRN Administration PAIN - Lab Result Fish Bone Diagrams: 08/05/20 10:00 08/05/20 08:59 - Additional Planning My Orders: My Active Orders 08/05/20 18:00 RESPIRATORY PCR PANEL Urgent 08/06/20 05:00 CRP - C-REACTIVE PROTEIN [CHEM] DAILYLAB 08/07/20 05:00 CRP - C-REACTIVE PROTEIN [CHEM] DAILYLAB 08/08/20 05:00 CRP - C-REACTIVE PROTEIN [CHEM] DAILYLAB 08/09/20 05:00 CRP - C-REACTIVE PROTEIN [CHEM] DAILYLAB Subjective - Subjective Patient Reports: Feeling Better Nursing Reports: No Complaints Objective Vital Signs: Vital Signs - 24 hr 08/04/20 08/04/20 08/04/20 20:21 20:25 20:30 Temperature 37.2 C 37.2 C 37 C Heart Rate 86 83 79 Heart Rate [ Monitoring electrodes] Respiratory 14 16 16 Rate Blood Pressure 157/81 H 144/77 H 155/73 H Blood Pressure [Left Radial artery] Blood Pressure [Right Brachial artery] O2 Saturation 100 100 100 08/04/20 08/04/20 08/04/20 20:35 20:40 20:45 Temperature 37 C 37 C 36.7 C Heart Rate 79 78 79 Heart Rate [ Monitoring electrodes] Respiratory 18 20 20 Rate Blood Pressure 134/66 H 144/78 H 135/78 H Blood Pressure [Left Radial artery] Blood Pressure [Right Brachial artery] O2 Saturation 100 100 100 08/04/20 08/04/20 08/04/20 20:50 20:55 21:19 Temperature 36.7 C 36.8 C 36.7 C Heart Rate 81 80 85 Heart Rate [ Monitoring electrodes] Respiratory 20 96 H 18 Rate Blood Pressure 135/78 H 138/65 H 140/81 H Blood Pressure [Left Radial artery] Blood Pressure [Right Brachial artery] O2 Saturation 96 20 L 99 08/04/20 08/05/20 08/05/20 22:04 00:43 06:00 Temperature 36.6 C 36.7 C 36.6 C Heart Rate 87 Heart Rate [ 74 74 Monitoring electrodes] Respiratory 16 18 16 Rate Blood Pressure 120/66 Blood Pressure [Left Radial artery] Blood Pressure 118/60 120/62 [Right Brachial artery] O2 Saturation 98 97 98 08/05/20 08/05/20 08/05/20 08:36 14:00 16:32 Temperature 36.6 C 36.7 C 36.9 C Heart Rate Heart Rate [ 83 81 69 Monitoring electrodes] Respiratory 16 16 16 Rate Blood Pressure Blood Pressure 132/73 H [Left Radial artery] Blood Pressure 142/68 H 117/59 L [Right Brachial artery] O2 Saturation 97 95 98 Oxygen O2 Source Room air I&O (Last 24 Hrs): Intake and Output Totals x24h 08/03/20 08/04/20 08/05/20 23:59 23:59 23:59 Intake Total 3280 Output Total 20 400 Balance -20 2880 General: Alert, Oriented x3, No acute distress HEENT: Atraumatic Neck: Supple Lymphatic: no adenopathy Neuro: Alert, Non Focal, Oriented Times 3 Cardiovascular: Regular rate, Normal S1, Normal S2 Respiratory: Chest non-tender, No respiratory distress Abdomen: Normal bowel sounds, Soft Extremities: Normal pulses, Other (right shoulder had dressing covering, mild erythema around right shoulder but without tenderness. pt has limited ROM of right hand) - Results Results: Laboratory Results WBC 8.0 x10^3/uL (4.8-10.8) 08/05/20 10:00 RBC 3.61 10^6/uL (4.20-5.40) L 08/05/20 10:00 Hgb 10.9 g/dL (12.0-16.0) L 08/05/20 10:00 Hct 33.5 % (37.0-47.0) L 08/05/20 10:00 MCV 92.8 fL (81.0-99.0) 08/05/20 10:00 MCH 30.2 pg (27.0-31.0) 08/05/20 10:00 MCHC 32.5 g/dL (32.0-36.0) 08/05/20 10:00 RDW 13.4 % (12.0-15.0) 08/05/20 10:00 Plt Count 242 10^3/uL (130-450) 08/05/20 10:00 MPV 8.7 fL (7.9-10.8) 08/05/20 10:00 Neut # (Auto) 6.4 10^3/uL (1.5-6.6) 08/05/20 10:00 Lymph # (Auto) 0.6 10^3/uL (1.5-3.5) L 08/05/20 10:00 [place] # (Auto) 0.9 10^3/uL (0.0-1.0) 08/05/20 10:00 Eos # (Auto) 0.1 10^3/uL (0.0-0.7) 08/05/20 10:00 Baso # (Auto) 0.0 10^3/uL (0.0-0.1) 08/05/20 10:00 Absolute Nucleated RBC 0.00 x10^3/uL 08/05/20 10:00 Nucleated RBC % 0.0 /100WBC 08/05/20 10:00 ESR 78 mm/Hr (0-30) H 08/04/20 17:41 Sodium 133 mmol/L (135-145) L 08/05/20 08:59 Potassium 3.8 mmol/L (3.5-5.0) 08/05/20 08:59 Chloride 95 mmol/L (101-111) L 08/05/20 08:59 Carbon Dioxide 25 mmol/L (21-32) 08/05/20 08:59 Anion Gap 13.0 (6-13) 08/05/20 08:59 BUN 24 mg/dL (6-20) H 08/05/20 08:59 Creatinine 0.9 mg/dL (0.4-1.0) 08/05/20 08:59 Estimated GFR (MDRD) 59 (>89) L 08/05/20 08:59 Glucose 146 mg/dL (70-100) H 08/05/20 08:59 Calcium 8.5 mg/dL (8.5-10.3) 08/05/20 08:59 Total Bilirubin 0.8 mg/dL (0.2-1.0) 08/04/20 17:41 AST 28 IU/L (10-42) 08/04/20 17:41 ALT 23 IU/L (10-60) 08/04/20 17:41 Alkaline Phosphatase 114 IU/L (42-121) 08/04/20 17:41 C-Reactive Protein 25.5 mg/dL (0-1.0) H 08/05/20 10:00 Total Protein 7.3 g/dL (6.7-8.2) 08/04/20 17:41 Albumin 3.1 g/dL (3.2-5.5) L 08/04/20 17:41 Globulin 4.2 g/dL (2.1-4.2) 08/04/20 17:41 Albumin/Globulin Ratio 0.7 (1.0-2.2) L 08/04/20 17:41 Lipase 20 U/L (22-51) L 08/04/20 17:41 Fluid Source SYNOVIAL 08/04/20 18:00 Fluid Color STRAW 08/04/20 18:00 Fluid Clarity TURBID 08/04/20 18:00 Fluid WBC 617562 /mm^3 08/04/20 18:00 Fluid RBC 22397 /mm^3 08/04/20 18:00 Fluid Neutrophils % 99 % 08/04/20 18:00 Fluid Lymphocytes % 1 % 08/04/20 18:00 Fld Mesothelial Cell % Not Reportable 08/04/20 18:00 Fluid Crystals NONE SEEN 08/04/20 18:00 ABX Reporting Has patient been on IV antibiotics over the past 48 hours?: Yes Current Medications - Current Medications Current Medications: Active Medications Acetaminophen (Tylenol) 975 mg PO Q6H PATT Stop: 08/07/20 22:59 Last Admin: 08/05/20 17:07 Dose: 975 mg Documented by: Ceftriaxone Sodium 2 gm/ (Sodium Chloride) 100 mls @ 200 mls/hr IV DAILY PATT Last Infusion: 08/05/20 15:22 Dose: Infused Documented by: Vancomycin HCl 1 gm/ Sodium (Chloride) 250 mls @ 167 mls/hr IV Q24H PATT Lactated Ringer's (Lr) 1,000 mls @ 83.333 mls/hr IV .Q12H PATT Stop: 08/06/20 07:59 Ketorolac Tromethamine (Toradol Inj (15mg)) 15 mg IVP Q6HR PRN PRN Reason: PAIN Stop: 08/09/20 22:10 Last Admin: 08/05/20 13:00 Dose: 15 mg Documented by: Ondansetron HCl (Zofran Inj) 4 mg IVP Q6HR PRN PRN Reason: Nausea / Vomiting Oxycodone HCl (Roxicodone) 5 mg PO Q4HR PRN PRN Reason: PAIN Last Admin: 08/04/20 21:21 Dose: 5 mg Documented by: Oxycodone HCl (Roxicodone) 10 mg PO Q4HR PRN PRN Reason: Pain 5 to 7 Triamterene/Hydrochlorothiazid [Triamterene-Hctz 37.5-25 mg Tb] 1 tab PO DAILY 08/05/20
[2020-08-05 19:20] LABS: C. PNEUMONIAE- RESP PCR PANEL NOT DETECTED
[2020-08-05] MEDS ORDERED: LACTATED RINGERS 1,000 ML IV SCH (20:00)
[2020-08-05] MEDS ORDERED: SIMETHICONE CHEW 80 MG TABLET PO PRN (21:08)
[2020-08-06] MEDS: ACETAMINOPHEN 325 MG TABLET PO SCH ×5 (00:05→22:53)
[2020-08-06] MEDS: oxyCODONE 5 MG TABLET PO PRN ×4 (05:20→19:55)
[2020-08-06] MEDS: KETOROLAC 15 MG/ML VIAL IVP PRN (05:37)
[2020-08-06 05:41] LABS: BASOPHILS % (AUTO) 0.6 %; EOSINOPHILS # (AUTO) 0.3 10^3/uL (0.0-0.7); EOSINOPHILS % (AUTO) 3.7 %; HGB - HEMOGLOBIN 10.1 g/dL (12.0-16.0); LYMPHOCYTES # (AUTO) 0.7 10^3/uL (1.5-3.5); LYMPHOCYTES % (AUTO) 10.3 %; MEAN CORPUSCULAR HEMOGLOBIN 30.7 pg (27.0-31.0); MEAN CORPUSCULAR HGB CONC 33.4 g/dL (32.0-36.0); MEAN CORPUSCULAR VOLUME 91.8 fL (81.0-99.0); MEAN PLATELET VOLUME 8.7 fL (7.9-10.8); MONOCYTES # (AUTO) 0.6 10^3/uL (0.0-1.0); MONOCYTES % (AUTO) 9.1 %; NEUTROPHILS # (AUTO) 5.1 10^3/uL (1.5-6.6); NEUTROPHILS % (AUTO) 75.4 %; PLT - PLATELET COUNT 267 10^3/uL (130-450); RED BLOOD COUNT 3.29 10^6/uL (4.20-5.40); RED CELL DISTRIBUTION WIDTH 13.4 % (12.0-15.0); WHITE BLOOD COUNT 6.8 x10^3/uL (4.8-10.8)
[2020-08-06 06:57] LABS: ALBUMIN 2.6 g/dL (3.2-5.5); ALBUMIN/GLOBULIN RATIO 0.8 (1.0-2.2); ALKALINE PHOSPHATASE 110 IU/L (42-121); ALT ALANINE AMINOTRANSFERASE < 10 IU/L (10-60); AST ASPARTATE AMINOTRANSFERASE 17 IU/L (10-42); BILIRUBIN,TOTAL 0.8 mg/dL (0.2-1.0); BUN - BLOOD UREA NITROGEN 18 mg/dL (6-20); CALCIUM 8.2 mg/dL (8.5-10.3); CARBON DIOXIDE - CO2 25 mmol/L (21-32); CHLORIDE 101 mmol/L (101-111); CREATININE 0.8 mg/dL (0.4-1.0); CRP - C-REACTIVE PROTEIN 18.8 mg/dL (0-1.0); GLUCOSE 95 mg/dL (70-100); SODIUM 136 mmol/L (135-145); TOTAL PROTEIN 5.7 g/dL (6.7-8.2)
--- NOTE | 2020-08-06 08:35 | PROVIDER PROGRESS NOTE ---
Subjective - Prog Note Date Prog Note Date: 08/06/20 - Subjective Pt reports feeling: Improved (Feeling much better overall but more pain overnight. Well controlled with oxycodone. No n/t to hand. No n/v) Objective - Vital Signs/Intake & Output Reviewed Vital Signs: Yes Intake & Output: Intake & Output 08/03/20 08/04/20 08/05/20 08/06/20 23:59 23:59 23:59 23:59 Intake Total 4033.333 700 Output Total 20 400 -20 3633.333 700 - Objective General Appearance: positive: No acute distress, Alert Eyes Bilateral: positive: Normal inspection Respiratory: positive: No respiratory distress Cardiovascular: positive: Regular rate & rhythm Skin: positive: Other (dressing intact) Extremities: positive: Other (less swelling today) Neurologic/Psychiatric: positive: Oriented x3, Motor nml, Sensation nml - Lab Results Fish Bones: 08/06/20 05:37 08/06/20 05:37 Other Labs: Lab Results x24hrs 08/06/20 08/06/20 08/05/20 Range/Units 05:37 05:37 18:00 WBC 6.8 (4.8-10.8) x10^3/uL RBC 3.29 L (4.20-5.40) 10^6/uL Hgb 10.1 L (12.0-16.0) g/dL Hct 30.2 L (37.0-47.0) % MCV 91.8 (81.0-99.0) fL MCH 30.7 (27.0-31.0) pg MCHC 33.4 (32.0-36.0) g/dL RDW 13.4 (12.0-15.0) % Plt Count 267 (130-450) 10^3/uL MPV 8.7 (7.9-10.8) fL Neut # (Auto) 5.1 (1.5-6.6) 10^3/uL Lymph # (Auto) 0.7 L (1.5-3.5) 10^3/uL [place] # (Auto) 0.6 (0.0-1.0) 10^3/uL Eos # (Auto) 0.3 (0.0-0.7) 10^3/uL Baso # (Auto) 0.0 (0.0-0.1) 10^3/uL Absolute Nucleated RBC 0.00 x10^3/uL Nucleated RBC % 0.0 /100WBC Sodium 136 (135-145) mmol/L Potassium 3.7 (3.5-5.0) mmol/L Chloride 101 (101-111) mmol/L Carbon Dioxide 25 (21-32) mmol/L Anion Gap 10.0 (6-13) BUN 18 (6-20) mg/dL Creatinine 0.8 (0.4-1.0) mg/dL Estimated GFR (MDRD) 68 L (>89) Glucose 95 (70-100) mg/dL Calcium 8.2 L (8.5-10.3) mg/dL Total Bilirubin 0.8 (0.2-1.0) mg/dL AST 17 (10-42) IU/L ALT < 10 L (10-60) IU/L Alkaline Phosphatase 110 (42-121) IU/L C-Reactive Protein 18.8 H (0-1.0) mg/dL Total Protein 5.7 L (6.7-8.2) g/dL Albumin 2.6 L (3.2-5.5) g/dL Globulin 3.1 (2.1-4.2) g/dL Albumin/Globulin Ratio 0.8 L (1.0-2.2) Nasal Adenovirus (PCR) NOT DETECTED Nasal B. parapertussis DNA (PCR) NOT DETECTED Nasal Coronavir 229E PCR NOT DETECTED Nasal Coronavir HKU1 PCR NOT DETECTED Nasal Coronavir NL63 PCR NOT DETECTED Nasal Coronavir OC43 PCR NOT DETECTED Nasal Enterovir/Rhinovir PCR NOT DETECTED Nasal Influenza B PCR NOT DETECTED Nasal Influenza A PCR NOT DETECTED Nasal Parainfluen 1 PCR NOT DETECTED Nasal Parainfluen 2 PCR NOT DETECTED Nasal Parainfluen 3 PCR NOT DETECTED Nasal Parainfluen 4 PCR NOT DETECTED Nasal RSV (PCR) NOT DETECTED Nasal B.pertussis DNA PCR NOT DETECTED Nasal C.pneumoniae (PCR) NOT DETECTED Femi Human Metapneumo PCR NOT DETECTED Nasal M.pneumoniae (PCR) NOT DETECTED Nasal SARS-CoV-2 (PCR) NOT DETECTED 08/05/20 08/05/20 08/05/20 Range/Units 10:00 10:00 08:59 WBC 8.0 (4.8-10.8) x10^3/uL RBC 3.61 L (4.20-5.40) 10^6/uL Hgb 10.9 L (12.0-16.0) g/dL Hct 33.5 L (37.0-47.0) % MCV 92.8 (81.0-99.0) fL MCH 30.2 (27.0-31.0) pg MCHC 32.5 (32.0-36.0) g/dL RDW 13.4 (12.0-15.0) % Plt Count 242 (130-450) 10^3/uL MPV 8.7 (7.9-10.8) fL Neut # (Auto) 6.4 (1.5-6.6) 10^3/uL Lymph # (Auto) 0.6 L (1.5-3.5) 10^3/uL [place] # (Auto) 0.9 (0.0-1.0) 10^3/uL Eos # (Auto) 0.1 (0.0-0.7) 10^3/uL Baso # (Auto) 0.0 (0.0-0.1) 10^3/uL Absolute Nucleated RBC 0.00 x10^3/uL Nucleated RBC % 0.0 /100WBC Sodium 133 L (135-145) mmol/L Potassium 3.8 (3.5-5.0) mmol/L Chloride 95 L (101-111) mmol/L Carbon Dioxide 25 (21-32) mmol/L Anion Gap 13.0 (6-13) BUN 24 H (6-20) mg/dL Creatinine 0.9 (0.4-1.0) mg/dL Estimated GFR (MDRD) 59 L (>89) Glucose 146 H (70-100) mg/dL Calcium 8.5 (8.5-10.3) mg/dL Total Bilirubin (0.2-1.0) mg/dL AST (10-42) IU/L ALT (10-60) IU/L Alkaline Phosphatase (42-121) IU/L C-Reactive Protein 25.5 H (0-1.0) mg/dL Total Protein (6.7-8.2) g/dL Albumin (3.2-5.5) g/dL Globulin (2.1-4.2) g/dL Albumin/Globulin Ratio (1.0-2.2) Nasal Adenovirus (PCR) Nasal B. parapertussis DNA (PCR) Nasal Coronavir 229E PCR Nasal Coronavir HKU1 PCR Nasal Coronavir NL63 PCR Nasal Coronavir OC43 PCR Nasal Enterovir/Rhinovir PCR Nasal Influenza B PCR Nasal Influenza A PCR Nasal Parainfluen 1 PCR Nasal Parainfluen 2 PCR Nasal Parainfluen 3 PCR Nasal Parainfluen 4 PCR Nasal RSV (PCR) Nasal B.pertussis DNA PCR Nasal C.pneumoniae (PCR) Femi Human Metapneumo PCR Nasal M.pneumoniae (PCR) Nasal SARS-CoV-2 (PCR) - Diagnostic Imaging Diagnostic Imaging Results: positive: Prelim report reviewed, Other (S. aureus, sensitivities pending) Assessment/Plan - Problem List (1) Septic arthritis of shoulder, right Impression: Improved POD2. Still on ancef and vanco. Plan to change to monotherapy when sensitivities are back. Either daily ceftriaxone as outpatient or weekly dalvance. Dressing change today. Ice to shoulder. will try to arrange polar cube for home. Follow up Aug 25 in clinic, possible conversion to orals at that time. I have contacted Dr Luo, who has kindly agreed to follow as I will be off [place] until 08/24 Qualifiers: Septic arthritis organism: staphylococcal Qualified Code(s): M00.011 - Staphylococcal arthritis, right shoulder
[2020-08-06] MEDS: cefTRIAXone 2 GM in SODIUM CHLORIDE 0.9% MINIBAG 100 ML IV SCH (10:30)
[2020-08-06] MEDS ORDERED: VANCOMYCIN INJ 1 GM in SODIUM CHLORIDE 0.9% 250 ML IV SCH (13:00)
--- NOTE | 2020-08-06 14:03 | PROVIDER PROGRESS NOTE ---
Assessment/Plan - Problem List (1) Septic arthritis of shoulder, right Qualifiers: Septic arthritis organism: staphylococcal Qualified Code(s): M00.011 - Staphylococcal arthritis, right shoulder Assessment/Plan: 08/06 pt report her shoulder pain is slight better, CRP is tread down. WBC is normal arrange, pt has no fever. wound/fluid culture reveals MSSA, then d/c vancomycin, continue Rocephin. consult with social media content manager. plan d/c pt home tomorrow with IV Rocephin, hopeful arrange home infusion daily Rocephin until Aug 25, followup with Orthopedics, maybe change to oral antibiotics. pt reported right shoulder pain with progressing worsening. orthopedics surgeon did aspiration and irrigation debridement right Glenohumeral and acromiocla vicular joints. Cultures show staph aureus but sensitive study is pending. aspiration fluid staining reveal septic arthritis without crystal. Continue Rocephin and vancomycin intravenous, waiting for sensitivity study if it is MRSA, then finally determine which antibiotics, then will order PICC for pt. pt is likely need two week IV antibiotic then two week PO antibiotics (2) HTN (hypertension) Assessment/Plan: stable, will resume home BP meds (3) Dehydration Assessment/Plan: 08/06 resolved, hold IVF, continue lab monitor, advise pt keep hydration. pt slight elevated BUN and creatinine, IVF and lab monitor - Current Meds Current Meds: Current Medications Generic Name Dose Route Start Last Admin Trade Name Freq PRN Reason Stop Dose Admin Acetaminophen 975 mg 08/04/20 23:00 08/06/20 10:55 Tylenol PO 08/07/20 22:59 975 mg Q6H PATT Administration Ceftriaxone Sodium 2 gm/ 100 mls @ 200 mls/hr 08/05/20 14:02 08/06/20 11:08 Sodium Chloride IV Infused DAILY PATT Infusion Ketorolac Tromethamine 15 mg 08/04/20 22:11 08/06/20 05:37 Toradol Inj (15mg) IVP 08/09/20 22:10 15 mg Q6HR PRN Administration PAIN Oxycodone HCl 5 mg 08/04/20 20:23 08/06/20 10:56 Roxicodone PO 5 mg Q4HR PRN Administration PAIN Simethicone 80 mg 08/05/20 21:08 08/05/20 21:30 Mylicon PO 80 mg 0900,1300,1800,2100 PRN Administration INDIGESTION - Lab Result Fish Bone Diagrams: 08/06/20 05:37 08/06/20 05:37 - Additional Planning My Orders: My Active Orders 08/06/20 17:00 Saccharomyces Boygdii [Florastor] 250 mg PO BIDWM 08/07/20 05:00 CRP - C-REACTIVE PROTEIN [CHEM] DAILYLAB 08/08/20 05:00 CRP - C-REACTIVE PROTEIN [CHEM] DAILYLAB 08/09/20 05:00 CRP - C-REACTIVE PROTEIN [CHEM] DAILYLAB Subjective - Subjective Patient Reports: Feeling Better Nursing Reports: No Complaints Objective Vital Signs: Vital Signs - 24 hr 08/05/20 08/05/20 08/05/20 14:00 16:32 23:59 Temperature 36.7 C 36.9 C 36.6 C Heart Rate [ 81 69 82 Monitoring electrodes] Respiratory 16 16 17 Rate Blood Pressure [Left Ankle] Blood Pressure 132/73 H 143/65 H [Left Radial artery] Blood Pressure 117/59 L [Right Brachial artery] O2 Saturation 95 98 93 08/06/20 08:31 Temperature 36.4 C L Heart Rate [ 88 Monitoring electrodes] Respiratory 18 Rate Blood Pressure 133/69 H [Left Ankle] Blood Pressure [Left Radial artery] Blood Pressure [Right Brachial artery] O2 Saturation 96 Oxygen O2 Source Room air I&O (Last 24 Hrs): Intake and Output Totals x24h 08/04/20 08/05/20 08/06/20 23:59 23:59 23:59 Intake Total 4033.333 1580 Output Total 20 400 Balance -20 3633.333 1580 General: Alert, Oriented x3, No acute distress HEENT: Atraumatic Neck: Supple Lymphatic: no adenopathy Neuro: Alert, Non Focal, Oriented Times 3 Cardiovascular: Regular rate, Normal S1, Normal S2 Respiratory: Chest non-tender, No respiratory distress, Breath sounds nml Abdomen: Normal bowel sounds, Soft, No tenderness Extremities: Normal pulses, Other (right shoulder with dressing cover, slight ROM) - Results Results: Laboratory Results WBC 6.8 x10^3/uL (4.8-10.8) 08/06/20 05:37 RBC 3.29 10^6/uL (4.20-5.40) L 08/06/20 05:37 Hgb 10.1 g/dL (12.0-16.0) L 08/06/20 05:37 Hct 30.2 % (37.0-47.0) L 08/06/20 05:37 MCV 91.8 fL (81.0-99.0) 08/06/20 05:37 MCH 30.7 pg (27.0-31.0) 08/06/20 05:37 MCHC 33.4 g/dL (32.0-36.0) 08/06/20 05:37 RDW 13.4 % (12.0-15.0) 08/06/20 05:37 Plt Count 267 10^3/uL (130-450) 08/06/20 05:37 MPV 8.7 fL (7.9-10.8) 08/06/20 05:37 Neut # (Auto) 5.1 10^3/uL (1.5-6.6) 08/06/20 05:37 Lymph # (Auto) 0.7 10^3/uL (1.5-3.5) L 08/06/20 05:37 [place] # (Auto) 0.6 10^3/uL (0.0-1.0) 08/06/20 05:37 Eos # (Auto) 0.3 10^3/uL (0.0-0.7) 08/06/20 05:37 Baso # (Auto) 0.0 10^3/uL (0.0-0.1) 08/06/20 05:37 Absolute Nucleated RBC 0.00 x10^3/uL 08/06/20 05:37 Nucleated RBC % 0.0 /100WBC 08/06/20 05:37 ESR 78 mm/Hr (0-30) H 08/04/20 17:41 Sodium 136 mmol/L (135-145) 08/06/20 05:37 Potassium 3.7 mmol/L (3.5-5.0) 08/06/20 05:37 Chloride 101 mmol/L (101-111) 08/06/20 05:37 Carbon Dioxide 25 mmol/L (21-32) 08/06/20 05:37 Anion Gap 10.0 (6-13) 08/06/20 05:37 BUN 18 mg/dL (6-20) 08/06/20 05:37 Creatinine 0.8 mg/dL (0.4-1.0) 08/06/20 05:37 Estimated GFR (MDRD) 68 (>89) L 08/06/20 05:37 Glucose 95 mg/dL (70-100) 08/06/20 05:37 Calcium 8.2 mg/dL (8.5-10.3) L 08/06/20 05:37 Total Bilirubin 0.8 mg/dL (0.2-1.0) 08/06/20 05:37 AST 17 IU/L (10-42) 08/06/20 05:37 ALT < 10 IU/L (10-60) L 08/06/20 05:37 Alkaline Phosphatase 110 IU/L (42-121) 08/06/20 05:37 C-Reactive Protein 18.8 mg/dL (0-1.0) H 08/06/20 05:37 Total Protein 5.7 g/dL (6.7-8.2) L 08/06/20 05:37 Albumin 2.6 g/dL (3.2-5.5) L 08/06/20 05:37 Globulin 3.1 g/dL (2.1-4.2) 08/06/20 05:37 Albumin/Globulin Ratio 0.8 (1.0-2.2) L 08/06/20 05:37 Lipase 20 U/L (22-51) L 08/04/20 17:41 Fluid Source SYNOVIAL 08/04/20 18:00 Fluid Color STRAW 08/04/20 18:00 Fluid Clarity TURBID 08/04/20 18:00 Fluid WBC 620216 /mm^3 08/04/20 18:00 Fluid RBC 09415 /mm^3 08/04/20 18:00 Fluid Neutrophils % 99 % 08/04/20 18:00 Fluid Lymphocytes % 1 % 08/04/20 18:00 Fld Mesothelial Cell % Not Reportable 08/04/20 18:00 Fluid Crystals NONE SEEN 08/04/20 18:00 Nasal Adenovirus (PCR) NOT DETECTED 08/05/20 18:00 Nasal B. parapertussis DNA (PCR) NOT DETECTED 08/05/20 18:00 Nasal Coronavir 229E PCR NOT DETECTED 08/05/20 18:00 Nasal Coronavir HKU1 PCR NOT DETECTED 08/05/20 18:00 Nasal Coronavir NL63 PCR NOT DETECTED 08/05/20 18:00 Nasal Coronavir OC43 PCR NOT DETECTED 08/05/20 18:00 Nasal Enterovir/Rhinovir PCR NOT DETECTED 08/05/20 18:00 Nasal Influenza B PCR NOT DETECTED 08/05/20 18:00 Nasal Influenza A PCR NOT DETECTED 08/05/20 18:00 Nasal Parainfluen 1 PCR NOT DETECTED 08/05/20 18:00 Nasal Parainfluen 2 PCR NOT DETECTED 08/05/20 18:00 Nasal Parainfluen 3 PCR NOT DETECTED 08/05/20 18:00 Nasal Parainfluen 4 PCR NOT DETECTED 08/05/20 18:00 Nasal RSV (PCR) NOT DETECTED 08/05/20 18:00 Nasal B.pertussis DNA PCR NOT DETECTED 08/05/20 18:00 Nasal C.pneumoniae (PCR) NOT DETECTED 08/05/20 18:00 Femi Human Metapneumo PCR NOT DETECTED 08/05/20 18:00 Nasal M.pneumoniae (PCR) NOT DETECTED 08/05/20 18:00 Nasal SARS-CoV-2 (PCR) NOT DETECTED 08/05/20 18:00 ABX Reporting Has patient been on IV antibiotics over the past 48 hours?: Yes Current Medications - Current Medications Current Medications: Active Medications Acetaminophen (Tylenol) 975 mg PO Q6H [facility] Stop: 08/07/20 22:59 Last Admin: 08/06/20 10:55 Dose: 975 mg Documented by: Ceftriaxone Sodium 2 gm/ (Sodium Chloride) 100 mls @ 200 mls/hr IV DAILY [facility] Last Infusion: 08/06/20 11:08 Dose: Infused Documented by: Ketorolac Tromethamine (Toradol Inj (15mg)) 15 mg IVP Q6HR PRN PRN Reason: PAIN Stop: 08/09/20 22:10 Last Admin: 08/06/20 05:37 Dose: 15 mg Documented by: Ondansetron HCl (Zofran Inj) 4 mg IVP Q6HR PRN PRN Reason: Nausea / Vomiting Oxycodone HCl (Roxicodone) 5 mg PO Q4HR PRN PRN Reason: PAIN Last Admin: 08/06/20 10:56 Dose: 5 mg Documented by: Oxycodone HCl (Roxicodone) 10 mg PO Q4HR PRN PRN Reason: Pain 5 to 7 Saccharomyces Boulardii (Florastor) 250 mg PO BIDWM PATT Simethicone (Mylicon) 80 mg PO 0900,1300,1800,2100 PRN PRN Reason: INDIGESTION Last Admin: 08/05/20 21:30 Dose: 80 mg Documented by: Triamterene/Hydrochlorothiazid [Triamterene-Hctz 37.5-25 mg Tb] 1 tab PO DAILY 08/05/20
[2020-08-06] MEDS: SACCHAROMYCES BOULARDII 250 MG CAPSULE PO SCH (16:46)
[2020-08-07] MEDS: ACETAMINOPHEN 325 MG TABLET PO SCH ×2 (05:39→11:00)
[2020-08-07 08:41] LABS: BASOPHILS # (AUTO) 0.1 10^3/uL (0.0-0.1); BASOPHILS % (AUTO) 0.7 %; EOSINOPHILS # (AUTO) 0.3 10^3/uL (0.0-0.7); EOSINOPHILS % (AUTO) 3.4 %; HGB - HEMOGLOBIN 11.7 g/dL (12.0-16.0); LYMPHOCYTES # (AUTO) 0.9 10^3/uL (1.5-3.5); LYMPHOCYTES % (AUTO) 11.5 %; MEAN CORPUSCULAR HEMOGLOBIN 30.3 pg (27.0-31.0); MEAN CORPUSCULAR HGB CONC 32.7 g/dL (32.0-36.0); MEAN CORPUSCULAR VOLUME 92.7 fL (81.0-99.0); MEAN PLATELET VOLUME 8.4 fL (7.9-10.8); MONOCYTES # (AUTO) 0.7 10^3/uL (0.0-1.0); MONOCYTES % (AUTO) 8.2 %; NEUTROPHILS # (AUTO) 6.1 10^3/uL (1.5-6.6); NEUTROPHILS % (AUTO) 74.6 %; PLT - PLATELET COUNT 320 10^3/uL (130-450); RED BLOOD COUNT 3.86 10^6/uL (4.20-5.40); RED CELL DISTRIBUTION WIDTH 13.5 % (12.0-15.0); WHITE BLOOD COUNT 8.2 x10^3/uL (4.8-10.8)
[2020-08-07 08:50] LABS: CALCIUM 8.5 mg/dL (8.5-10.3); CREATININE 0.8 mg/dL (0.4-1.0)
[2020-08-07 08:56] VITALS: BP 110/56
[2020-08-07] MEDS: SACCHAROMYCES BOULARDII 250 MG CAPSULE PO SCH (08:59)
[2020-08-07] MEDS: cefTRIAXone 2 GM in SODIUM CHLORIDE 0.9% MINIBAG 100 ML IV SCH (08:59)
[2020-08-07] MEDS ORDERED: polyethylene glycoL 3350 17 GM PACKET PO SCH (09:00)
[2020-08-07] MEDS: oxyCODONE 5 MG TABLET PO PRN (09:01)
--- NOTE | 2020-08-07 10:35 | Discharge Plan ---
Discharge Plan Problem Reviewed?: Yes Disposition: Home, Self Care Condition: Good Prescriptions: Docusate Sodium 100Mg Capsule [Colace 100Mg Capsule] 100 mg PO DAILY #10 capsule cefTRIAXone [Rocephin 2 gram] 2 gm IV Q24H 18 Days #18 vial Ondansetron Odt [Zofran Odt] 4 mg TL Q6H PRN #10 tablet PRN Reason: Nausea / Vomiting Diet: Regular Activity Restrictions: Activity as Tolerated Shower Restrictions: No (fall precaution) Driving Restrictions: No Plan of Treatment: Wound care Daily rocephin as outpatirent x [address] Luo follow up on Monday Dr. Fajardo follow up on 08/25 No Smoking: If you smoke, Please STOP! Call for help. Follow-up with: Allan Dupont MD [Primary Care Provider] -
--- NOTE | 2020-08-07 14:39 | DISCHARGE SUMMARY ---
Physician: Scotty Pike MD DATE OF ADMISSION: 08/05/2020 DATE OF DISCHARGE: 08/07/2020 DISCHARGE DIAGNOSES 1. Septic right shoulder. 2. Septic right acromioclavicular joint. 3. History of hypertension. HOSPITAL COURSE: After patient's evaluation, both initially at her Primary Care physician, Dr. Dupont 's office and upon her admission here at the hospital, she was admitted under Dr. Fajardo's service, [facility] Orthopedist that was supervisor long goods. She underwent initially an aspiration of her right acromioclavicular joint, which revealed a septic joint. She was taken to the OR. She had a formal surgical irrigatio n and debridement of her acromioclavicular joint. At the time, she was noted also to have a rather l arge purulent collection that stemmed from her ipsilateral right shoulder glenohumeral joint. This w as incised and drained as well. After copious irrigation, her wounds were loosely approximated. She was started on broad-spectrum antibiotics. A Medicine consult was also obtained. Her antibiotics in cluded Rocephin and vancomycin as we awaited for final sensitivities from the cultures. Today prior to her discharge, the cultures came back as methicillin-sensitive Staphylococcus aureus organisms. A t that time, it was elected that the vancomycin would be discontinued and she would just be on Roceph in antibiotics. Clinically, she continued to improve, having much less pain in the shoulder and bett er shoulder function. She was ready for discharge home. DISCHARGE PLANS 1. The patient will be discharged home on today's date, 08/07/2020. 2. The patient will be seen at the outpatient clinic for IV administration of Rocephin daily for the next 18 days. 3. Pain medication as needed. 4. Follow up with her Primary Care doctor, Dr. Dupont, on Monday for a wound check. 5. The patient will follow up with Sixto Fajardo MD, the Orthopedist on 08/25/2020. This appointme nt has already been arranged at the Orthopedic clinic. TD: 08/07/2020 10:42
== END 2020-08-07 12:00 | disposition home or self-care (01) | DRG 550 ==
LOC: ED 17:20 → SDS 18:10 → OBS 20:59 → SDS 08-05 08:32 → OBS 08-05 08:33 → MS2 08-05 20:17
PROVIDERS: ADMIT Orthopaedic Surgery; ATTEND Orthopaedic Surgery
PROC: 05HY33Z Insertion of Infusion Device into Upper Vein, Percutaneous Approach (ICD-10-PCS; principal; 2020-08-05)
DX: M00.9 Pyogenic arthritis, unspecified (principal); E03.9 Hypothyroidism, unspecified
CPT/HCPCS: 20606; 20610; 23040; 23120; 36415; 36569; 71045; 73050; 80048; 80053; 83690; 85025; 85651; 86140; 87070; 87181; 87205; 87631; 89051; 89060; 97165; 99283; 99285; A9270; C1751; J0131; J1170; J3370; J7120; 0202U

== ENCOUNTER 2020-09-03 08:00 | Outpatient (CLI) | payer MEDICARE | END 2020-09-03 23:59 | disposition home or self-care (01) | LOC: LAB.N 08:00 | PROVIDERS: ATTEND Orthopaedic Surgery | DX: M00.819 Arthritis due to other bacteria, unspecified shoulder (principal) | CPT/HCPCS: 87070; 87205 ==

== ENCOUNTER 2020-09-03 11:08 | Outpatient (CLI) | payer MEDICARE ==
--- NOTE | 2020-09-03 11:45 | XRAY Report ---
PROCEDURE: Shoulder 3 View RT INDICATIONS: SEPTIC ARTHRITIS OF SHOULDER TECHNIQUE: 3 views of the shoulder were acquired. COMPARISON: None. FINDINGS: Bones: No fractures. Acromioclavicular interval is widened to 11 mm. Periarticular osteophyte format ion at the glenohumeral joint is present. No suspicious bony lesions. Visualized ribs appear intact. Soft tissues: No suspicious soft tissue calcifications. IMPRESSION: 1. Acromioclavicular separation versus postsurgical sequelae. 2. Glenohumeral joint osteoarthritis. 3. No acute fracture. No osseous lesion. If symptoms and/or clinical suspicion for pathology continue , further assessment with repeat plain films, or advanced imaging (e.g., CT, MRI, or bone scan) is re commended for further assessment. Reviewed by: Eran Sarmiento MD on 09/03/2020 11:44 AM PST Approved by: Eran Sarmiento MD on 09/03/2020 11:44 AM [facility] Station ID: [id number]
== END 2020-09-03 23:59 | disposition home or self-care (01) ==
LOC: DI.N 11:08
PROVIDERS: ATTEND Orthopaedic Surgery
DX: R93.6 Abnormal findings on diagnostic imaging of limbs (principal); M19.011 Primary osteoarthritis, right shoulder; M00.819 Arthritis due to other bacteria, unspecified shoulder
CPT/HCPCS: 87070; 87075; 87205

== ENCOUNTER 2020-09-29 09:36 | Outpatient (CLI) | payer MEDICARE ==
[2020-09-29 15:57] LABS: BASOPHILS % (AUTO) 3.3 %; LYMPHOCYTES # (AUTO) 0.7 10^3/uL (1.5-3.5); LYMPHOCYTES % (AUTO) 75.6 %; MEAN CORPUSCULAR HEMOGLOBIN 27.9 pg (27.0-31.0); MEAN CORPUSCULAR HGB CONC 30.4 g/dL (32.0-36.0); MEAN CORPUSCULAR VOLUME 91.9 fL (81.0-99.0); MEAN PLATELET VOLUME 11.7 fL (7.9-10.8); MONOCYTES # (AUTO) 0.2 10^3/uL (0.0-1.0); NEUTROPHILS % (AUTO) 1.1 %; RED CELL DISTRIBUTION WIDTH 14.3 % (12.0-15.0)
[2020-09-29 16:21] LABS: ALBUMIN 3.6 g/dL (3.2-5.5); ALBUMIN/GLOBULIN RATIO 1.1 (1.0-2.2); CALCIUM 9.2 mg/dL (8.5-10.3); CREATININE 0.8 mg/dL (0.4-1.0)
[2020-09-29 19:44] LABS: DIFFERENTIAL COMMENT MANUAL=AUTO DIFF; PLATELET ESTIMATE, MANUAL DECREASED (<130,000) (NORMAL); PLATELET MORPHOLOGY PLATELET CLUMPING (NORMAL)
[2020-09-29 19:46] LABS: WHITE BLOOD COUNT 0.9 x10^3/uL (4.8-10.8)
== END 2020-09-29 09:37 | disposition home or self-care (01) ==
LOC: LAB.S 09:36
PROVIDERS: ATTEND Internal Medicine Infectious Disease
DX: R79.89 Other specified abnormal findings of blood chemistry (principal); D64.9 Anemia, unspecified; M00.011 Staphylococcal arthritis, right shoulder
CPT/HCPCS: 36415; 80053; 85025; 86140

== ENCOUNTER 2020-09-30 11:35 | Outpatient (CLI) | payer MEDICARE ==
[2020-09-30 16:09] LABS: BASOPHILS % (AUTO) 1.7 %; HGB - HEMOGLOBIN 12.3 g/dL (12.0-16.0); LYMPHOCYTES % (AUTO) 56.3 %; MEAN CORPUSCULAR HEMOGLOBIN 28.5 pg (27.0-31.0); MEAN CORPUSCULAR HGB CONC 31.2 g/dL (32.0-36.0); MEAN CORPUSCULAR VOLUME 91.4 fL (81.0-99.0); MEAN PLATELET VOLUME 12.3 fL (7.9-10.8); MONOCYTES # (AUTO) 0.6 10^3/uL (0.0-1.0); MONOCYTES % (AUTO) 35.1 %; NEUTROPHILS % (AUTO) 3.5 %; RED BLOOD COUNT 4.31 10^6/uL (4.20-5.40); RED CELL DISTRIBUTION WIDTH 13.8 % (12.0-15.0)
[2020-09-30 16:56] LABS: NEUTROPHILS # (AUTO) 0.1 10^3/uL (1.5-6.6); WHITE BLOOD COUNT 1.7 x10^3/uL (4.8-10.8)
[2020-09-30 21:21] LABS: DIFFERENTIAL COMMENT MANUAL=AUTO DIFF; PLATELET ESTIMATE, MANUAL DECREASED (<130,000) (NORMAL); PLATELET MORPHOLOGY PLATELET CLUMPING (NORMAL); RBC MORPHOLOGY (MULTIPLE) NORMAL APPEARANCE (NORMAL)
== END 2020-09-30 11:36 | disposition home or self-care (01) ==
LOC: LAB.S 11:35
PROVIDERS: ATTEND Internal Medicine
DX: D64.9 Anemia, unspecified (principal); M00.819 Arthritis due to other bacteria, unspecified shoulder
CPT/HCPCS: 36415; 85025; 86140

== ENCOUNTER 2020-10-10 10:30 | Outpatient (CLI) | payer MEDICARE ==
[2020-10-10 14:51] LABS: BASOPHILS # (AUTO) 0.1 10^3/uL (0.0-0.1); BASOPHILS % (AUTO) 1.2 %; HGB - HEMOGLOBIN 11.6 g/dL (12.0-16.0); LYMPHOCYTES # (AUTO) 1.6 10^3/uL (1.5-3.5); LYMPHOCYTES % (AUTO) 21.6 %; MEAN CORPUSCULAR HEMOGLOBIN 28.1 pg (27.0-31.0); MEAN CORPUSCULAR HGB CONC 30.6 g/dL (32.0-36.0); MEAN CORPUSCULAR VOLUME 91.8 fL (81.0-99.0); MEAN PLATELET VOLUME 12.3 fL (7.9-10.8); MONOCYTES # (AUTO) 0.9 10^3/uL (0.0-1.0); MONOCYTES % (AUTO) 11.5 %; NEUTROPHILS # (AUTO) 4.7 10^3/uL (1.5-6.6); NEUTROPHILS % (AUTO) 63.4 %; PLT - PLATELET COUNT 88 10^3/uL (130-450); RED BLOOD COUNT 4.13 10^6/uL (4.20-5.40); RED CELL DISTRIBUTION WIDTH 14.5 % (12.0-15.0); WHITE BLOOD COUNT 7.4 x10^3/uL (4.8-10.8)
== END 2020-10-10 10:31 | disposition home or self-care (01) ==
LOC: LAB.S 10:30
PROVIDERS: ATTEND Internal Medicine Infectious Disease
DX: M00.011 Staphylococcal arthritis, right shoulder (principal)
CPT/HCPCS: 36415; 85025; 86140

== ENCOUNTER 2020-10-17 10:42 | Outpatient (CLI) | payer MEDICARE ==
[2020-10-17 14:42] LABS: BASOPHILS # (AUTO) 0.1 10^3/uL (0.0-0.1); EOSINOPHILS % (AUTO) 0.3 %; HGB - HEMOGLOBIN 11.1 g/dL (12.0-16.0); LYMPHOCYTES # (AUTO) 1.1 10^3/uL (1.5-3.5); LYMPHOCYTES % (AUTO) 18.8 %; MEAN CORPUSCULAR HGB CONC 30.5 g/dL (32.0-36.0); MEAN CORPUSCULAR VOLUME 91.9 fL (81.0-99.0); MEAN PLATELET VOLUME 10.8 fL (7.9-10.8); MONOCYTES # (AUTO) 0.4 10^3/uL (0.0-1.0); MONOCYTES % (AUTO) 6.8 %; NEUTROPHILS # (AUTO) 4.3 10^3/uL (1.5-6.6); NEUTROPHILS % (AUTO) 72.9 %; PLT - PLATELET COUNT 158 10^3/uL (130-450); RED BLOOD COUNT 3.96 10^6/uL (4.20-5.40); WHITE BLOOD COUNT 5.9 x10^3/uL (4.8-10.8)
== END 2020-10-17 10:43 | disposition home or self-care (01) ==
LOC: LAB.S 10:42
PROVIDERS: ATTEND Internal Medicine Infectious Disease
DX: M00.011 Staphylococcal arthritis, right shoulder (principal); D69.6 Thrombocytopenia, unspecified
CPT/HCPCS: 36415; 85025

== ENCOUNTER 2020-11-16 14:25 | Outpatient (CLI) | payer MEDICARE ==
[2020-11-16 20:13] LABS: BASOPHILS # (AUTO) 0.1 10^3/uL (0.0-0.1); EOSINOPHILS # (AUTO) 0.2 10^3/uL (0.0-0.7); HCT - HEMATOCRIT 37.9 % (37.0-47.0); HGB - HEMOGLOBIN 11.8 g/dL (12.0-16.0); LYMPHOCYTES # (AUTO) 1.1 10^3/uL (1.5-3.5); LYMPHOCYTES % (AUTO) 17.6 %; MEAN CORPUSCULAR HEMOGLOBIN 27.9 pg (27.0-31.0); MEAN CORPUSCULAR HGB CONC 31.1 g/dL (32.0-36.0); MEAN CORPUSCULAR VOLUME 89.6 fL (81.0-99.0); MONOCYTES # (AUTO) 0.4 10^3/uL (0.0-1.0); MONOCYTES % (AUTO) 6.6 %; NEUTROPHILS # (AUTO) 4.3 10^3/uL (1.5-6.6); NEUTROPHILS % (AUTO) 71.6 %; PLT - PLATELET COUNT 99 10^3/uL (130-450); RED BLOOD COUNT 4.23 10^6/uL (4.20-5.40); RED CELL DISTRIBUTION WIDTH 15.3 % (12.0-15.0)
== END 2020-11-16 14:26 | disposition home or self-care (01) ==
LOC: LAB.S 14:25
PROVIDERS: ATTEND Internal Medicine Infectious Disease
DX: M00.011 Staphylococcal arthritis, right shoulder (principal); D61.818 Other pancytopenia
CPT/HCPCS: 36415; 85025; 86140

== ENCOUNTER 2020-12-15 08:00 | Outpatient (CLI) | payer MEDICARE ==
--- NOTE | 2020-12-15 11:30 | XRAY Report ---
PROCEDURE: Thoracic Spine 2 View INDICATIONS: THORACIC BACK PAIN TECHNIQUE: 3 views of the thoracic spine were acquired. COMPARISON: None. FINDINGS: Bones: Multiple views of the thoracic spine were performed. There are multiple compression fractures from approximately T6-T8 resulting in kyphosis. These are of uncertain age. The thoracic spine also h as an S-shaped curvature of the thoracolumbar spine to the right in the lumbar spine and to the left in the upper thoracic spine. Soft tissues: No paravertebral stripe thickening. IMPRESSION: 1. Multilevel degenerative changes. 2. Multiple compression fractures of approximately T6-T8 resulting in kyphosis of indeterminate age. MRI would be helpful to further evaluate. Reviewed by: Benjamín Mckoy on 12/15/2020 11:29 AM PDT Approved by: Benjamín Mckoy on 12/15/2020 11:29 AM PDT Station ID: [id number]
[2020-12-15 15:03] LABS: BASOPHILS % (AUTO) 0.8 %; EOSINOPHILS # (AUTO) 0.1 10^3/uL (0.0-0.7); EOSINOPHILS % (AUTO) 1.5 %; HCT - HEMATOCRIT 37.8 % (37.0-47.0); HGB - HEMOGLOBIN 12.1 g/dL (12.0-16.0); LYMPHOCYTES # (AUTO) 1.1 10^3/uL (1.5-3.5); LYMPHOCYTES % (AUTO) 23.2 %; MEAN CORPUSCULAR HEMOGLOBIN 28.3 pg (27.0-31.0); MEAN CORPUSCULAR VOLUME 88.3 fL (81.0-99.0); MEAN PLATELET VOLUME 11.2 fL (7.9-10.8); MONOCYTES # (AUTO) 0.4 10^3/uL (0.0-1.0); MONOCYTES % (AUTO) 7.9 %; NEUTROPHILS # (AUTO) 3.2 10^3/uL (1.5-6.6); NEUTROPHILS % (AUTO) 66.4 %; PLT - PLATELET COUNT 87 10^3/uL (130-450); RED BLOOD COUNT 4.28 10^6/uL (4.20-5.40); RED CELL DISTRIBUTION WIDTH 15.6 % (12.0-15.0); WHITE BLOOD COUNT 4.8 x10^3/uL (4.8-10.8)
== END 2020-12-15 23:59 | disposition home or self-care (01) ==
LOC: DI.S 08:00
PROVIDERS: ATTEND Emergency Medicine
DX: M48.54XA Collapsed vertebra, not elsewhere classified, thoracic region, initial encounter for fracture (principal); M47.814 Spondylosis without myelopathy or radiculopathy, thoracic region; M40.294 Other kyphosis, thoracic region; D69.6 Thrombocytopenia, unspecified; D70.9 Neutropenia, unspecified; M00.9 Pyogenic arthritis, unspecified; M00.819 Arthritis due to other bacteria, unspecified shoulder
CPT/HCPCS: 36415; 85025

== ENCOUNTER 2020-12-15 09:52 | Outpatient (CLI) | payer MEDICARE | END 2020-12-15 09:53 | disposition home or self-care (01) | LOC: LAB.S 09:52 | PROVIDERS: ATTEND Physician Assistant | DX: D69.6 Thrombocytopenia, unspecified (principal); M00.819 Arthritis due to other bacteria, unspecified shoulder; D70.9 Neutropenia, unspecified; M00.9 Pyogenic arthritis, unspecified ==

== ENCOUNTER 2021-01-14 13:16 | Outpatient (CLI) | payer MEDICARE ==
[2021-01-14 20:05] LABS: BASOPHILS # (AUTO) 0.1 10^3/uL (0.0-0.1); BASOPHILS % (AUTO) 0.9 %; EOSINOPHILS # (AUTO) 0.1 10^3/uL (0.0-0.7); EOSINOPHILS % (AUTO) 1.3 %; HCT - HEMATOCRIT 38.1 % (37.0-47.0); HGB - HEMOGLOBIN 11.9 g/dL (12.0-16.0); LYMPHOCYTES # (AUTO) 1.2 10^3/uL (1.5-3.5); LYMPHOCYTES % (AUTO) 21.8 %; MEAN CORPUSCULAR HEMOGLOBIN 28.7 pg (27.0-31.0); MEAN CORPUSCULAR HGB CONC 31.2 g/dL (32.0-36.0); MEAN PLATELET VOLUME 11.1 fL (7.9-10.8); MONOCYTES # (AUTO) 0.5 10^3/uL (0.0-1.0); MONOCYTES % (AUTO) 8.8 %; NEUTROPHILS # (AUTO) 3.7 10^3/uL (1.5-6.6); NEUTROPHILS % (AUTO) 66.8 %; PLT - PLATELET COUNT 83 10^3/uL (130-450); RED BLOOD COUNT 4.14 10^6/uL (4.20-5.40); RED CELL DISTRIBUTION WIDTH 16.8 % (12.0-15.0); WHITE BLOOD COUNT 5.6 x10^3/uL (4.8-10.8)
== END 2021-01-14 13:17 | disposition home or self-care (01) ==
LOC: LAB.S 13:16
PROVIDERS: ATTEND Internal Medicine
DX: D69.6 Thrombocytopenia, unspecified (principal)
CPT/HCPCS: 36415; 85025

== ENCOUNTER 2021-02-16 10:11 | Outpatient (CLI) | payer MEDICARE ==
[2021-02-16 14:36] LABS: BASOPHILS # (AUTO) 0.1 10^3/uL (0.0-0.1); EOSINOPHILS # (AUTO) 0.1 10^3/uL (0.0-0.7); EOSINOPHILS % (AUTO) 2.1 %; HCT - HEMATOCRIT 36.8 % (37.0-47.0); HGB - HEMOGLOBIN 11.8 g/dL (12.0-16.0); LYMPHOCYTES % (AUTO) 16.6 %; MEAN CORPUSCULAR HEMOGLOBIN 29.9 pg (27.0-31.0); MEAN CORPUSCULAR HGB CONC 32.1 g/dL (32.0-36.0); MEAN CORPUSCULAR VOLUME 93.2 fL (81.0-99.0); MEAN PLATELET VOLUME 9.9 fL (7.9-10.8); MONOCYTES # (AUTO) 0.5 10^3/uL (0.0-1.0); MONOCYTES % (AUTO) 8.9 %; NEUTROPHILS # (AUTO) 4.1 10^3/uL (1.5-6.6); NEUTROPHILS % (AUTO) 71.1 %; PLT - PLATELET COUNT 131 10^3/uL (130-450); RED BLOOD COUNT 3.95 10^6/uL (4.20-5.40); WHITE BLOOD COUNT 5.7 x10^3/uL (4.8-10.8)
[2021-02-16 15:05] LABS: ALBUMIN/GLOBULIN RATIO 1.4 (1.0-2.2); BILIRUBIN,TOTAL 0.8 mg/dL (0.2-1.0); CALCIUM 9.2 mg/dL (8.5-10.3); CREATININE 0.9 mg/dL (0.4-1.0); POTASSIUM 3.9 mmol/L (3.5-5.0); TOTAL PROTEIN 6.8 g/dL (6.7-8.2)
== END 2021-02-16 10:12 | disposition home or self-care (01) ==
LOC: LAB.S 10:11
PROVIDERS: ATTEND Internal Medicine
DX: D69.6 Thrombocytopenia, unspecified (principal); R79.89 Other specified abnormal findings of blood chemistry
CPT/HCPCS: 36415; 80053; 85025

== ENCOUNTER 2021-02-18 15:23 | Outpatient (CLI) | payer MEDICARE ==
[2021-02-23 12:41] LABS: IMMUNOGLOBULIN A 79 mg/dL (70-320); IMMUNOGLOBULIN G 683 mg/dL (600-1540); IMMUNOGLOBULIN M 105 mg/dL (50-300)
== END 2021-02-18 15:24 | disposition home or self-care (01) ==
LOC: LAB.S 15:23
PROVIDERS: ATTEND Internal Medicine
DX: R79.9 Abnormal finding of blood chemistry, unspecified (principal)
CPT/HCPCS: 82784

== ENCOUNTER 2021-03-25 15:06 | Outpatient (CLI) | payer MEDICARE | END 2021-03-25 15:07 | disposition home or self-care (01) | LOC: LAB.S 15:06 | PROVIDERS: ATTEND Student in an Organized Health Care Education/Training Program | DX: M81.0 Age-related osteoporosis without current pathological fracture (principal) | CPT/HCPCS: 36415; 82310 ==

== ENCOUNTER 2021-11-29 10:55 | Outpatient (CLI) | payer MEDICARE ==
[2021-11-29 15:21] LABS: ALBUMIN 4.1 g/dL (3.2-5.5); ALBUMIN/GLOBULIN RATIO 1.5 (1.0-2.2); BILIRUBIN,TOTAL 0.5 mg/dL (0.2-1.0); CALCIUM 9.2 mg/dL (8.5-10.3); CREATININE 0.8 mg/dL (0.4-1.0); TOTAL PROTEIN 6.9 g/dL (6.7-8.2)
[2021-11-29 15:22] LABS: BASOPHILS % (AUTO) 0.9 %; EOSINOPHILS # (AUTO) 0.2 10^3/uL (0.0-0.7); EOSINOPHILS % (AUTO) 4.1 %; HCT - HEMATOCRIT 29.6 % (37.0-47.0); LYMPHOCYTES # (AUTO) 0.6 10^3/uL (1.5-3.5); MEAN CORPUSCULAR HEMOGLOBIN 23.1 pg (27.0-31.0); MEAN CORPUSCULAR HGB CONC 30.4 g/dL (32.0-36.0); MEAN CORPUSCULAR VOLUME 75.9 fL (81.0-99.0); MEAN PLATELET VOLUME 10.3 fL (7.9-10.8); MONOCYTES # (AUTO) 0.5 10^3/uL (0.0-1.0); MONOCYTES % (AUTO) 10.4 %; NEUTROPHILS # (AUTO) 3.3 10^3/uL (1.5-6.6); NEUTROPHILS % (AUTO) 71.4 %; PLT - PLATELET COUNT 118 10^3/uL (130-450); RED CELL DISTRIBUTION WIDTH 16.4 % (12.0-15.0); WHITE BLOOD COUNT 4.6 x10^3/uL (4.8-10.8)
[2021-11-29 15:34] LABS: THYROID STIMULATING HORMONE 1.69 uIU/mL (0.34-5.60)
== END 2021-11-29 10:56 | disposition home or self-care (01) ==
LOC: LAB.S 10:55
PROVIDERS: ATTEND Internal Medicine
DX: E03.9 Hypothyroidism, unspecified (principal); Z79.899 Other long term (current) drug therapy; D69.6 Thrombocytopenia, unspecified
CPT/HCPCS: 36415; 80053; 84443; 85025

== ENCOUNTER 2022-09-27 12:23 | Outpatient (CLI) | payer MEDICARE ==
--- NOTE | 2022-09-27 14:11 | Ultrasound Report ---
PROCEDURE: Duplex Lwr Ext Arterial Bilat INDICATIONS: PVD TECHNIQUE: Color and pulse Doppler interrogation was performed of both lower extremity arterial systems, with im age documentation. COMPARISON: None FINDINGS: Right lower extremity: Common femoral artery: 72 cm/sec, with I phasic flow. Deep femoral artery: 57 cm/sec, with biphasic flow. Proximal superficial femoral artery: 66 cm/sec, with biphasic flow. Mid superficial femoral artery: 59 cm/sec, with biphasic flow. Distal superficial femoral artery: 45 cm/sec, with biphasic flow. Popliteal artery: 67 cm/sec, with triphasic flow. Posterior tibial artery: 83 cm/sec, with biphasic flow. Anterior tibial artery/dorsalis pedis: 43/16 cm/sec, with biphasic flow. Lobo-scale imaging description: Mild diffuse plaque. A right Jain's cyst measures 5.2 x 2.2 x 4.4 c m. Left lower extremity: Common femoral artery: 72 cm/sec, with biphasic flow. Deep femoral artery: 56 cm/sec, with triphasic flow. Proximal superficial femoral artery: 75 cm/sec, with biphasic flow. Mid superficial femoral artery: 88 cm/sec, with biphasic flow. Distal superficial femoral artery: 55 cm/sec, with biphasic flow. Popliteal artery: 51 cm/sec, with biphasic flow. Posterior tibial artery: 12 cm/sec, with biphasic flow. Anterior tibial artery/dorsalis pedis: 81/47 cm/sec, with biphasic flow. Lobo-scale imaging description: Mild diffuse plaque IMPRESSION: No significant stenosis by imaging or velocity/waveform criteria. Reviewed by: Benjamín Mckoy on 09/27/2022 2:09 PM PST Approved by: Benjamín Mckoy on 09/27/2022 2:09 PM PST Station ID: [id number]
--- NOTE | 2022-09-30 11:25 | WOUND CARE PROGRESS NOTE ---
Assessment/Plan - Home Meds/Allergies Allergies No Known Drug Allergies Allergy (Verified 08/10/20 16:04)
== END 2022-09-27 12:24 | disposition home or self-care (01) ==
LOC: DI 12:23
PROVIDERS: ATTEND Nurse Practitioner
DX: L97.902 Non-pressure chronic ulcer of unspecified part of unspecified lower leg with fat layer exposed (principal); I73.9 Peripheral vascular disease, unspecified; L23.9 Allergic contact dermatitis, unspecified cause; B99.9 Unspecified infectious disease
CPT/HCPCS: 93925

== ENCOUNTER 2022-11-02 09:04 | Outpatient (CLI) | payer MEDICARE ==
[2022-11-02 14:23] LABS: BASOPHILS # (AUTO) 0.1 10^3/uL (0.0-0.1); EOSINOPHILS # (AUTO) 0.1 10^3/uL (0.0-0.7); EOSINOPHILS % (AUTO) 2.1 %; HCT - HEMATOCRIT 45.2 % (37.0-47.0); HGB - HEMOGLOBIN 14.3 g/dL (12.0-16.0); LYMPHOCYTES # (AUTO) 0.9 10^3/uL (1.5-3.5); LYMPHOCYTES % (AUTO) 19.5 %; MEAN CORPUSCULAR HEMOGLOBIN 30.7 pg (27.0-31.0); MEAN CORPUSCULAR HGB CONC 31.6 g/dL (32.0-36.0); MEAN PLATELET VOLUME 10.8 fL (7.9-10.8); MONOCYTES # (AUTO) 0.4 10^3/uL (0.0-1.0); MONOCYTES % (AUTO) 8.9 %; NEUTROPHILS # (AUTO) 3.3 10^3/uL (1.5-6.6); NEUTROPHILS % (AUTO) 68.3 %; PLT - PLATELET COUNT 115 10^3/uL (130-450); RED BLOOD COUNT 4.66 10^6/uL (4.20-5.40); RED CELL DISTRIBUTION WIDTH 15.7 % (12.0-15.0); WHITE BLOOD COUNT 4.8 x10^3/uL (4.8-10.8)
[2022-11-02 15:12] LABS: ALBUMIN 4.4 g/dL (3.2-5.5); ALBUMIN/GLOBULIN RATIO 1.5 (1.0-2.2); CALCIUM 9.7 mg/dL (8.5-10.3); CREATININE 0.8 mg/dL (0.4-1.0); POTASSIUM 4.3 mmol/L (3.5-5.0); TOTAL PROTEIN 7.3 g/dL (6.7-8.2)
--- NOTE | 2022-11-02 15:24 | XRAY Report ---
PROCEDURE: Shoulder 3 View RT INDICATIONS: SHOULDER JOINT PAIN,RIGHT TECHNIQUE: 3 views of the shoulder were acquired. COMPARISON: Right shoulder radiographs 09/03/2020 FINDINGS: Bones: No acute fracture or dislocation identified. Severe degenerative changes of the glenohumeral j oint present with complete joint space loss, subchondral sclerosis and cystic change, and deformity o f the humeral head. Degenerative changes of the glenohumeral joint has significantly worsened since t he prior exam. Degenerative changes of the acromioclavicular joint are also present. Soft tissues: No suspicious soft tissue calcifications. IMPRESSION: Severe degenerative changes of the right shoulder, significantly worsened since 2019. Reviewed by: Janes Oakes MD on 11/02/2022 3:23 PM PST Approved by: Janes Oakes MD on 11/02/2022 3:23 PM PST Station ID: [id number]
== END 2022-11-02 09:05 | disposition home or self-care (01) ==
LOC: DI.S 09:04
PROVIDERS: ATTEND Registered Nurse
DX: M19.011 Primary osteoarthritis, right shoulder (principal); D61.818 Other pancytopenia
CPT/HCPCS: 36415; 80053; 82728; 85025